=== PATIENT | female | born 1950 | race Hispanic/Latino ===

== ENCOUNTER 2024-04-11 12:13 | Inpatient (IN) | payer MEDICARE, OTHER ==
[~2024-04-11] VITALS: Ht 157.5 cm; Wt 62.6 kg
[2024-04-11 12:45] LABS: BASOPHILS # (AUTO) 0.03 K/uL (0.00-0.20); BASOPHILS % (AUTO) 0.4 % (0.0-5.0); EOSINOPHILS # (AUTO) 0.09 K/uL (0.00-0.70); EOSINOPHILS % (AUTO) 1.3 % (0.0-8.0); HEMATOCRIT 36.2 % (36-48); IMMATURE GRANULOCYTE ABSOLUTE 0.01 K/uL (0-1); LYMPHOCYTES # (AUTO) 1.5 K/uL (1.0-4.8); LYMPHOCYTES % (AUTO) 20.7 % (21.0-51.0); MEAN CORPUSCULAR HEMOGLOBIN 27.4 pg (27.0-33.0); MEAN CORPUSCULAR HGB CONC 33.1 g/dL (32.0-36.0); MEAN CORPUSCULAR VOLUME 82.6 fL (79-99); MONOCYTES # (AUTO) 0.5 K/uL (0.1-1.0); MONOCYTES % (AUTO) 6.5 % (3.0-13.0); PLATELET COUNT (AUTO) 283 K/uL (130-400); RED BLOOD CELL COUNT(AUTO) 4.38 MIL/uL (4.00-5.50); RED CELL DISTRIBUTION WIDTH 12.7 % (11.0-15.5); WHITE BLOOD COUNT (AUTO) 7.1 K/uL (4.8-10.8)
[2024-04-11 12:49] LABS: APPEARANCE,URINE CLEAR (CLEAR); BILIRUBIN,URINE NEGATIVE (NEGATIVE); COLOR,URINE COLORLESS (YELLOW); GLUCOSE, URINE (UA) NEGATIVE (NEGATIVE); KETONES,URINE NEGATIVE (NEGATIVE); LEUKOCYTE ESTERASE ,URINE 250 Leu/uL (NEGATIVE); NITRATE,URINE NEGATIVE (NEGATIVE); OCCULT BLOOD,URINE NEGATIVE (NEGATIVE); PH,URINE 7.5 (5.0-8.0); PROTEIN,URINE NEGATIVE (NEGATIVE); UROBILINOGEN,URINE 0.2 mg/dL (0.2-1.0)
[2024-04-11 13:01] LABS: ADD UA MICROSCOPIC YES
[2024-04-11 13:03] LABS: BACTERIA,URINE FEW /HPF (None Seen); RBC,URINE 0-1 /HPF (0-1); SQUAMOUS EPITHELIAL CELL,UR RARE /HPF (0-2); WBC,URINE 51-100 /HPF (0-1)
[2024-04-11 13:05] LABS: RAPID GROUP A STREP negative (NEGATIVE)
[2024-04-11 13:08] LABS: CREATININE 0.7 mg/dL (0.5-1.0); POTASSIUM 3.8 mmol/L (3.5-5.1)
[2024-04-11 13:13] LABS: INFLUENZA TYPE A Negative For Type A (NEGATIVE); INFLUENZA TYPE B Negative For Type B (NEGATIVE)
--- NOTE | 2024-04-11 13:16 | HMCIMG ---
CHEST 1VW HISTORY: Chest pain COMPARISON: None FINDINGS: A frontal projection of the chest was obtained. No acute pulmonary infiltrates is seen. The heart is borderline enlarged. Degenerative changes are seen. Prominent interstitial markings are seen. IMPRESSION: 1. No acute pulmonary infiltrate is seen.
[2024-04-11 13:29] LABS: SARS-CoV-2, RNA, NAAT NEGATIVE SARS CoV-2 (NEGATIVE)
[2024-04-11 13:34] LABS: B-TYPE NATRIURETIC PEPTIDE 21 pg/mL (0-100)
--- NOTE | 2024-04-11 13:49 | EKG ---
[facility] Test Date: 2024-04-11 Test Time: 12:06:33 Pat Name: NAHUN GAINES Department: EDH Room: ED Gender: F Clinical Cytogenetics Director: [id number] : 1950 Requested By: JOSE ARREDONDO Order Number: [id number] Reading MD: Héctor Anton Measurements Intervals [place] Rate: 82 P: 54 TN: 149 QRS: 25 QRSD: 98 T: 33 QT: 371 QTc: 434 Interpretive Statements Sinus rhythm No previous ECG available for comparison Electronically Signed On 04-11-2024 16:20:16 AGRICULTURAL SERVICE TECHNICIAN by Héctor Anton Please click the below link to view image of tracing.
--- NOTE | 2024-04-11 13:51 | ERN ---
General Chief Complaint: Chest Pain Stated Complaint: CP Time Seen by MD: 12:19 History of Present Illness Initial Comments 73-year-old female came in for chest pain going on since earlier today. Patient otherwise has no concerns. Allergies: Coded Allergies: No Known Drug Allergies (Unverified Allergy, Unknown, 04/11/24) Past Medical History Past Medical History: High Cholesterol, Hypertension, Other Medical History Other: MD Past Surgical History: Hysterectomy, Tonsillectomy, Cholecystectomy, ROS Dictation CONSTITUTIONAL: Negative except for HPI HEAD/FACE: Negative except for HPI EENT: Negative except for HPI RESPIRATORY: Negative except for HPI GASTROINTESTINAL/ABDOMINAL: Negative except for HPI GENITOURINARY: Negative except for HPI MUSCULOSKELETAL: Negative except for HPI INTEGUMENTARY: Negative except for HPI NEUROLOGICAL/PSYCH: Negative except for HPI HEMATOLOGIC/LYMPHATIC: Negative except for HPI All Systems Negative, Except as noted above. 13 point review of systems assessed and all negative except for above. Physical Exam Physical Exam Dictation Vital Signs reviewed General Appearance: Alert, oriented x 3, no acute distress, well developed, nourished. Head and Face: non-traumatic. Eyes: PERRL, pink conjunctivas, eyelid no trauma, anterior chamber with arcus senilis. Ears: Pinnas intact and no signs of trauma or erythema ear canals clear and no discharge TM no erythema Nose: No discharge, no bleeding. Oropharynx: Mouth normal, tongue pink, pharynx clear,no erythema, tonsils no exudates, no abscesses noted, mucous membrane moist Neck: Supple, non-tender, no thyromegaly, no masses, no JVD, no bruits Breast:Deferred Chest:No tenderness, no crepitus, no paradoxical movement, no retractions Lungs:Clear, well-ventilated, symmetric, no rales, no wheezing, no rhonchi, no stridor, good breath sounds bilaterally Heart: Regular rate, regular rhythm, no murmur, no gallops Vascular: no peripheral edema, Abdomen: Soft, positive bowel sounds, nondistended, no guarding, nontender, no rebound, no masses no hepatomegaly, no splenomegaly, no Villareal's sign, no hernias. Rectal: Deferred Genital: Deferred Neurological: Normal speech, motor function intact, sensory function intact Musculoskeletal: Neck nontender, full range of motion, back nontender, full range of motion, Extremities: nontender, full range of motion Skin: Color pink, dry, no turgor, no rash, no lacerations, no abrasions, no contusions. Lymphatic: Deferred Results Laboratory and Microbiology Lab and Micro Result Laboratory Tests Test 04/11/24 12:28 04/11/24 12:30 04/11/24 13:07 White Blood Count 7.1 K/uL (4.8-10.8) Red Blood Count 4.38 MIL/uL (4.00-5.50) Hemoglobin 12.0 g/dL (12.0-16.0) Hematocrit 36.2 % (36-48) Mean Corpuscular Volume 82.6 fL (79-99) Mean Corpuscular Hemoglobin 27.4 pg (27.0-33.0) Mean Corpuscular Hemoglobin Concent 33.1 g/dL (32.0-36.0) Red Cell Distribution Width 12.7 % (11.0-15.5) Platelet Count 283 K/uL (130-400) Mean Platelet Volume 9.2 fL (7.5-10.5) Immature Granulocyte % (Auto) 0.1 % (0-1) Neutrophils (%) (Auto) 71.0 % (40.0-77.0) Lymphocytes (%) (Auto) 20.7 % (21.0-51.0) L Monocytes (%) (Auto) 6.5 % (3.0-13.0) Eosinophils (%) (Auto) 1.3 % (0.0-8.0) Basophils (%) (Auto) 0.4 % (0.0-5.0) Neutrophils # (Auto) 5.0 K/uL (1.8-7.7) Lymphocytes # (Auto) 1.5 K/uL (1.0-4.8) Monocytes # (Auto) 0.5 K/uL (0.1-1.0) Eosinophils # (Auto) 0.09 K/uL (0.00-0.70) Basophils # (Auto) 0.03 K/uL (0.00-0.20) Absolute Immature Granulocyte (auto 0.01 K/uL (0-1) Nucleated Red Blood Cells 0.0 % (0.0-0.19) Sodium Level 139 mmol/L (136-145) Potassium Level 3.8 mmol/L (3.5-5.1) Chloride Level 102 mmol/L (101-111) Carbon Dioxide Level 28 mmol/L (21-32) Blood Urea Nitrogen 7 mg/dL (7-18) Creatinine 0.7 mg/dL (0.5-1.0) Glomerular Filtration Rate Calc 92 mL/min (>90) Random Glucose 200 mg/dL (70-105) H Total Calcium 9.7 mg/dL (8.5-10.1) Total Creatine Kinase 88 U/L (21-232) B-Type Natriuretic Peptide 21 pg/mL (0-100) Influenza Type A Antigen Negative For Type A Influenza Type B Antigen Negative For Type B SARS-CoV-2, RNA, NAAT NEGATIVE SARS CoV-2 Group A Streptococcus Rapid negative (NEGATIVE) Urine Color COLORLESS (YELLOW) Urine Appearance CLEAR (CLEAR) Urine pH 7.5 (5.0-8.0) Urine Specific [place] 1.005 (1.001-1.031) Urine Protein NEGATIVE mg/dL (NEGATIVE) Urine Glucose (UA) NEGATIVE mg/dL (NEGATIVE) Urine Ketones NEGATIVE mg/dL (NEGATIVE) Urine Occult Blood NEGATIVE (NEGATIVE) Urine Nitrate NEGATIVE (NEGATIVE) Urine Bilirubin NEGATIVE mg/dL (NEGATIVE) Urine Urobilinogen 0.2 mg/dL (0.2-1.0) Urine Leukocyte Esterase 250 Alla/uL (NEGATIVE) H Urine RBC 0-1 /HPF (0-1) Urine WBC 51-100 /HPF (0-1) H Urine Squamous Epithelial Cells RARE /HPF (0-2) Urine Bacteria FEW /HPF (None Seen) Troponin I < 0.05 ng/mL (0.00-0.05) MDM MDM: Differential diagnosis: Rationale: Tests considered and ordered secondary to shared decision making include: Previous outside records reviewed: Old ER visits. Risk of complication and/or morbidity or mortality of patient management: None Medications-Per medication reconciliation Need for hospitalization: Patient does meet criteria for hospitalization. Need for emergency major/minor surgery: No There are no social concerns with this patient. Prescription drug management Prescriptions will include symptomatic care Patient's prior external medical records from other ER visits were reviewed by me as indicated. Prior testing and results from previous visits were reviewed. Prior tests were taken into account with medical decision making and resource utilization, independent historian/historians were used to obtain complete medical history. I independently interpreted the test that were performed, results were reviewed by me and considered findings on radiology if ordered. Medical management and examination interpretation discussions were had by me with other qualified healthcare professionals as indicated for the patient's care. ED Course Orders Procedure Category Date Status Time Vital Signs Per CPOE 04/11/24 Transmitted Routine 12:15 B-Type Natriuretic LAB 04/11/24 Complete Peptide 12:15 Chest 1vw RAD 04/11/24 Resulted 12:15 12 Lead Ekg Tracing- EKG 04/11/24 Complete Technical 12:15 Oxygen By Nc/Pulse Ox CPOE 04/11/24 Transmitted 12:15 Maintain Iv CPOE 04/11/24 Transmitted 12:15 Iv Insertion CPOE 04/11/24 Transmitted 12:15 Cardiac Monitoring CPOE 04/11/24 Transmitted 12:15 Pulse Oximetry With CPOE 04/11/24 Transmitted Vs And Prn 12:15 Cbc With Differential LAB 04/11/24 Complete 12:15 Activity: Br W/Brp CPOE 04/11/24 Transmitted With Assist 12:15 Creatine Kinase, Total LAB 04/11/24 Complete 12:15 Troponin Poc Order LAB 04/11/24 Complete Only 12:15 Bedside Troponin-I LAB.ER 04/11/24 In Process (Poc) 12:15 Basic Metabolic Panel LAB 04/11/24 Complete 12:15 Covid Rna Naat LAB 04/11/24 Complete 12:15 Influenza Type A & B, LAB 04/11/24 Complete Rapid 12:15 Rapid (Group A Strep) LAB 04/11/24 Complete 12:15 Urinalysis Profile LAB 04/11/24 Complete 12:32 Culture Urine BRYANT 04/11/24 In Process 13:01 Vital Signs Date Time Temp Pulse Resp B/P (MAP) Pulse Ox O2 Delivery O2 Flow Rate FiO2 04/11/24 12:57 81 16 157/79 98 Room Air* 0 21 04/11/24 12:17 98.1 88 20 151/87 98 Room Air 0 DX & DISP Disposition: Inpatient Departure Impression: Primary Impression: Chest pain Condition: Stable Referrals: TUCKER WILLIAMSON (PCP) JOSE ARREDONDO MD Apr 11, 2024 13:51
--- NOTE | 2024-04-11 14:10 | NUR ---
CARDIOLOGY CONSULT DONE, DR. FRANKS SPOKE DIRECTLY TO PRINCIPAL RESEARCH ECONOMIST
[2024-04-11] MEDS: cefTRIAXone 1G VIAL IVPB SCH (14:27)
[2024-04-11] MEDS ORDERED: BUDESONIDE 0.5 MG/2 ML INH IH SCH (14:30)
[2024-04-11] MEDS ORDERED: NITROGLYCERIN 0.4 MG SL TAB SL PRN ×2 (14:30)
[2024-04-11] MEDS ORDERED: acetaMINOPHEN 500 MG TABLET PO PRN (14:30)
--- NOTE | 2024-04-11 14:40 | HP ---
[facility] HISTORY AND PHYSICAL Date of Service: Apr 11, 2024 Time of Service: 14:34 HISTORY OF PRESENT ILLNESS: Date of service: 04/11/2024, patient was seen in ER hallway Neva, 73-year-old female with underlying history of hypertension, hyperlipidemia, type 2 diabetes mellitus, previous history of IA x3 with last IA being in 2004, prior history of PCI with stenting, cardiac murmur, who presented to the ER for further evaluation of chest pain. Patient states that she has been having cough for about a week and she was following up with her primary care physician today. While waiting in the lobby, she developed left-sided chest pain which she describes as stabbing in quality. Pain lasted for about 10-15 minutes and was relieved after receiving aspirin and nitroglycerin. Patient states that she became anxious due to prior history of multiple MIs. She is followed by Dr. Sheffield with Cardiology in [place]. Patient states that she currently is not having active chest pain. Denies any significant chest trauma or pleurisy. Cough has been productive with greenish colored sputum. She has been also having dysuria as well. Denies any significant fevers, chills or shortness of breath. On presentation to the hospital, patient was noted to be afebrile with T-max of 98.1 F, heart rate of 88, blood pressure of 151/87. Labs on presentation showed WBC count of 7100, hemoglobin 12.0, platelet count of [id number]. BMP remarkable for sodium 139, potassium 3.8, chloride of 102, creatinine of 0.7, blood glucose of 200, and bedside troponin was noted to be negative. Chest x-ray showed no acute infiltrate. Patient will be admitted for further management of UTI, bronchitis, and will also undergo further workup to rule out active ACS. Consultation with Cardiology will be requested, and 2D echocardiogram will be obtained. REVIEW OF SYSTEMS CONSTITUTIONAL: [place] NEUROLOGICAL: Denies headache, amaurosis fugax, motor weakness, sensory deficit, vertigo/spinning sensation, gait abnormalities, or tremors. ENT: No hearing loss, otalgia, otorrhea, rhinitis, rhinorrhea, hoarseness, or sore throat. CARDIOVASCULAR: Patient reports having chest pain today PULMONARY: Cough and congestion SLEEP: Denies morning headaches, daytime somnolence or napping. Denies difficulty falling asleep, staying asleep, waking from sleep. Denies knowledge of snoring. GASTROINTESTINAL: Denies any type of dysphagia to either liquids or solids. Denies nausea, vomiting, pyrosis, early satiety, abdominal pain, diarrhea, constipation, or changes in stool consistency or caliber. Denies coffee-ground emesis, hematemesis, hematochezia, or melanotic stools. GENITOURINARY: Denies frequency, urgency, nocturia, hematuria or incontinence (Storage/Irritative symptoms.) Low urinary stream, straining to void, urinary intermittency or hesitancy, splitting of the voiding stream, terminal dribbling. ENDOCRINOLOGIC: Denies polyuria, polydipsia, polyphagia or heat/cold intolerances. HEMATOLOGIC: Denies thrombophilia/previous clots, or coagulopathy/bleeding disorders. ONCOLOGIC: Denies personal history of malignancy. DERMATOLOGIC: Denies rashes or pruritus. PSYCHIATRIC: Denies any suicidal or homicidal ideation. Denies hallucinations. PAST MEDICAL HISTORY: Hypertension, hyperlipidemia, prior history of IA x3, gastritis, type 2 diabetes mellitus, history of cardiac murmur PAST SURGICAL HISTORY: Hysterectomy, cholecystectomy, prior history of PCI in 2004, tonsillectomy PAST SOCIAL HISTORY: Currently denies active smoking or alcohol consumption FAMILY HISTORY: Denies pertinent family history Allergies: Denies known drug allergies Medications: Patient will be bringing home medication list to be reconciled and updated, reports being on losartan, metoprolol XL, metformin, Lipitor Coded Allergies: No Known Drug Allergies (Unverified Allergy, Unknown, 04/11/24) PHYSICAL EXAM GENERAL APPEARANCE: The patient is awake, alert, and oriented, in no acute cardiopulmonary distress. NEUROLOGICAL: Cranial nerves II-XII grossly intact. Motor is 5/5 in bilateral upper and lower extremities proximal to distal. No sensory deficits. HEENT: Face is symmetric. Pupils are equal and reactive. Extraocular movements are intact. NECK: Supple. No JVD. No thyromegaly. No submental, submandibular, pre-/postauricular, occipital or supraclavicular lymphadenopathy. CHEST: Normal chest expansion. No Telemetry. LUNGS: Absence of any rales, rhonchi or any wheezing. CARDIOVASCULAR: Regular. S1 and S2 normal. 3/6 murmur noted of the precordium ABDOMEN: Soft, nontender, and nondistended. There is no rebound, voluntary guarding, or rigidity. : Deferred. No [place]. EXTREMITIES: Non-edematous and not cyanotic. No clubbing. Good capillary refill. SKIN: No skin breakdown. Vital Sign (Last 24 Hours) 04/11/24 04/11/24 12:17 14:07 Temp 98.1 Pulse 76 Resp 16 B/P (MAP) 149/77 Pulse Ox 98 O2 Delivery Room Air* O2 Flow Rate 0 FiO2 21 LABS: Laboratory: Test 04/11/24 13:07 04/11/24 12:30 04/11/24 12:28 Range/Units Troponin I < 0.05 0.00-0.05 ng/mL Urine Color COLORLESS YELLOW Urine Appearance CLEAR CLEAR Urine pH 7.5 5.0-8.0 Urine Specific [place] 1.005 1.001-1.031 Urine Protein NEGATIVE NEGATIVE mg/dL Urine Glucose (UA) NEGATIVE NEGATIVE mg/dL Urine Ketones NEGATIVE NEGATIVE mg/dL Urine Occult Blood NEGATIVE NEGATIVE Urine Nitrate NEGATIVE NEGATIVE Urine Bilirubin NEGATIVE NEGATIVE mg/dL Urine Urobilinogen 0.2 0.2-1.0 mg/dL Urine Leukocyte Esterase 250 H NEGATIVE Alla/uL Urine RBC 0-1 0-1 /HPF Urine WBC 51-100 H 0-1 /HPF Urine Squamous Epithelial Cells RARE 0-2 /HPF Urine Bacteria FEW None Seen /HPF White Blood Count 7.1 4.8-10.8 K/uL Red Blood Count 4.38 4.00-5.50 MIL/uL Hemoglobin 12.0 12.0-16.0 g/dL Hematocrit 36.2 36-48 % Mean Corpuscular Volume 82.6 79-99 fL Mean Corpuscular Hemoglobin 27.4 27.0-33.0 pg Mean Corpuscular Hemoglobin Concent 33.1 32.0-36.0 g/dL Red Cell Distribution Width 12.7 11.0-15.5 % Platelet Count 283 130-400 K/uL Mean Platelet Volume 9.2 7.5-10.5 fL Immature Granulocyte % (Auto) 0.1 0-1 % Neutrophils (%) (Auto) 71.0 40.0-77.0 % Lymphocytes (%) (Auto) 20.7 L 21.0-51.0 % Monocytes (%) (Auto) 6.5 3.0-13.0 % Eosinophils (%) (Auto) 1.3 0.0-8.0 % Basophils (%) (Auto) 0.4 0.0-5.0 % Neutrophils # (Auto) 5.0 1.8-7.7 K/uL Lymphocytes # (Auto) 1.5 1.0-4.8 K/uL Monocytes # (Auto) 0.5 0.1-1.0 K/uL Eosinophils # (Auto) 0.09 0.00-0.70 K/uL Basophils # (Auto) 0.03 0.00-0.20 K/uL Absolute Immature Granulocyte (auto 0.01 0-1 K/uL Nucleated Red Blood Cells 0.0 0.0-0.19 % Sodium Level 139 136-145 mmol/L Potassium Level 3.8 3.5-5.1 mmol/L Chloride Level 102 101-111 mmol/L Carbon Dioxide Level 28 21-32 mmol/L Blood Urea Nitrogen 7 7-18 mg/dL Creatinine 0.7 0.5-1.0 mg/dL Glomerular Filtration Rate Calc 92 >90 mL/min Random Glucose 200 H 70-105 mg/dL Total Calcium 9.7 8.5-10.1 mg/dL Total Creatine Kinase 88 21-232 U/L B-Type Natriuretic Peptide 21 0-100 pg/mL Influenza Type A Antigen Negative For Type A NEGATIVE Influenza Type B Antigen Negative For Type B NEGATIVE SARS-CoV-2, RNA, NAAT NEGATIVE SARS CoV-2 NEGATIVE Group A Streptococcus Rapid negative NEGATIVE Current Medications Medications (Trade) Dose Ordered Sig/John Route PRN Reason Start Time Stop Time Status Last Admin Dose Admin Acetaminophen (TYLenol 500MG TAB) 500 mg Q6H PRN PO MILD PAIN (1-3) 04/11/24 14:30 05/11/24 14:29 Budesonide (Pulmicort 0.5 Mg/2ml) 0.5 mg BIDRESP IH 04/11/24 14:30 05/11/24 14:29 Ceftriaxone Sodium (ROCEphine 1G INJ) 1 gm Q12H IVPB 04/11/24 14:30 04/21/24 14:29 04/11/24 14:27 1 GM Clopidogrel Bisulfate (plaVIX 75MG) 75 mg DAILY PO 04/12/24 09:00 05/12/24 08:59 Enoxaparin Sodium (Lovenox) 40 mg DAILY SQ 04/12/24 09:00 05/12/24 08:59 Famotidine (Pepcid 20mg Vial) 20 mg DAILY IV 04/12/24 09:00 04/11/24 14:21 DC Fluticasone Propionate (FLOnase 50 mcg/ spray 16g bottle) 1 SPRAY PER NARE BID EN 04/11/24 21:00 05/11/24 20:59 Insulin Human Regular (humuLIN R 100 UNIT/ML 3ML) INSULIN SLIDING SCAL... ACHS SQ 04/11/24 16:30 05/11/24 16:29 Ipratropium [place] (AtrovENT UD) 0.5 mg Q6H PRN IH SHORTNESS OF BREATH 04/11/24 14:30 05/11/24 14:29 Losartan Potassium (CozAAR 100MG TAB) 100 mg DAILY PO 04/12/24 09:00 05/12/24 08:59 Metoprolol Succinate (TopROL XL) 50 mg DAILY PO 04/12/24 09:00 05/12/24 08:59 Nitroglycerin (Nitrostat) 0.4 mg AD PRN SL CHEST PAIN 04/11/24 14:30 04/11/24 14:13 DC Nitroglycerin (Nitrostat) 0.4 mg AD PRN SL CHEST PAIN 04/11/24 14:30 05/11/24 14:29 Pantoprazole Sodium (PROTonix 40MG TAB) 40 mg DAILY PO 04/12/24 09:00 05/12/24 08:59 DIAGNOSTICS / RADIOLOGY: IMAGING REPORT Signed PATIENT: NAHUN GAINES MR#: [id number] : 1950 SEX: F AGE: 73 LOCATION: [facility] ORDER STATUS: [facility] REPORT#: [id number] SERVICE [id number] REASON: CHEST PAIN ORDERING PHYSICIAN: JOSE ARREDONDO MD PROCEDURE: CXR1VW - CHEST 1VW CHEST 1VW HISTORY: Chest pain COMPARISON: None FINDINGS: A frontal projection of the chest was obtained. No acute pulmonary infiltrates is seen. The heart is borderline enlarged. Degenerative changes are seen. Prominent interstitial markings are seen. IMPRESSION: 1. No acute pulmonary infiltrate is seen. DICTATED BY: ARUN KHAN MD DATE: 04/11/241312 ELECTRONICALLY SIGNED BY: ARUN KHAN MD DATE: 04/11/241315 ASSESSMENT: Atypical chest pain, rule out unstable angina/ACS, POA Acute bronchitis, POA Urinary tract infection, POA History of prior IA x3 with prior history of PCI maintained on chronic antiplatelet therapy with Plavix, POA Cardiac murmur, POA History of type 2 diabetes mellitus, POA Hypertension, POA Hyperlipidemia, POA PLAN: Patient will be admitted to medical-surgical floor under telemetry monitoring We will trend troponin to rule out active ACS We will start patient on IV Rocephin for management of UTI, obtain respiratory cultures, follow up flu and COVID testing We will request consultation with Cardiology, 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 [place] Continue with home dose of losartan 100 mg daily, metoprolol succinate 50 mg daily Continue with home dose of Plavix We will obtain 2D echocardiogram to assess LVF, and further evaluate cardiac murmur which patient states has been there chronically Maintain K greater than four and magnesium greater than two All labs will be repeated in the morning Date of service: 04/11/2024 Plan of care was discussed with patient at bedside, Yazan White MD Advanced Care Planning: Which of the following were discussed: Hospice care: Yes __ No _X_ Therapeutic options: Yes _X_ No __ Advance directives: Yes _X_ No __ Other discussions: Discussed with who?: Patient Voluntary nature of this service was explained to the patient? Yes _x_ No __ Amount of time spent: 20 minutes YAZAN WHITE MD Apr 11, 2024 14:40
[2024-04-11 14:42] LABS: ALBUMIN 3.2 g/dL (3.5-5.0); BILIRUBIN,DIRECT 0.1 mg/dL (0.0-0.3); BILIRUBIN,TOTAL 0.4 mg/dL (0.2-1.0); MAGNESIUM 1.3 mg/dL (1.80-2.40); TOTAL PROTEIN, SERUM 7.8 g/dL (6.0-8.3)
[2024-04-11 14:47] LABS: HEMOGLOBIN A1C 6.7 % (4.0-6.0)
[2024-04-11 14:51] LABS: THYROID STIMULATING HORMONE 1.79 uIU/mL (0.36-3.74)
[2024-04-11] MEDS: MAGNESIUM 2GM PREMIX 50ML 50 ML IV SCH (14:55)
[2024-04-11] MEDS ORDERED: PoTASSium chloRIDE 20MEQ/100ML 100 ML IV PRN (15:00)
[2024-04-11] MEDS ORDERED: PoTASSium chl 10% ELIXIR 20MEQ 20 MEQ/15 ML UDCUP PO PRN (15:00)
[2024-04-11 15:55] VITALS: PULSE 73; RESP 18
[2024-04-11] MEDS ORDERED: LOSA100T59 PO ×2 (15:56→20:09)
[2024-04-11] MEDS ORDERED: METO-391 PO ×2 (15:56→20:09)
[2024-04-11] MEDS ORDERED: PANT40TA54 PO ×2 (15:56→20:09)
[2024-04-11] MEDS ORDERED: ATOR20TA65 PO ×2 (15:56→20:09)
[2024-04-11] MEDS ORDERED: CLOP75TA32 PO ×2 (15:56→20:09)
[2024-04-11] MEDS ORDERED: METF-444 PO ×2 (15:56→20:09)
[2024-04-11] MEDS: IpraTROPium 0.5 MG/2.5 ML INH IH PRN (16:25)
[2024-04-11] MEDS: SODIUM CHLORIDE 3% FOR INHALATION 4 ML/AMP VIAL.NEB IH ONE (16:25)
[2024-04-11] MEDS: INSULIN humuLIN R 100 UNIT/ML 3ML SQ SCH (16:30)
[2024-04-11 19:42] VITALS: PULSE 85; RESP 18; O2SAT 100
[2024-04-11] MEDS: BUDESONIDE 0.5 MG/2 ML INH IH SCH (19:42)
[2024-04-11] MEDS ORDERED: ACET-2123 PO (20:09)
[2024-04-11] MEDS: fluTICasone proPIONate 50MCG/SPRAY 16 GM BOTTLE EN SCH (21:05)
[2024-04-11] MEDS: atorVAStatin 20 MG TABLET PO SCH (21:05)
[2024-04-11 22:20] VITALS: BP 166/88; PULSE 88; RESP 20; O2SAT 98
[2024-04-11] MEDS: PoTASSium chloRIDE 20MEQ ER 20 MEQ ERTAB PO PRN (22:23)
--- NOTE | 2024-04-11 23:28 | CONS ---
CONSULT NOTE: CARDIOLOGY Reason for consult: Chest pain HPI/story at presentation: This is a pleasant 71-year-old female with past medical history as per present with complaints of atypical chest discomfort in the setting of a cough and chest pain subsequently. Has a history of significant coronary disease with [place] multiple times in the past, most recent stenting per patient by 2004. Also, reported, had a cardiac catheterization that lasted, unable to find report. Cardiology was consulted for further evaluation management Subjective: 04/11/2024, no active cardiac complaint Past medical history: See below Allergies, Meds See chart Review of systems Review of Systems Constitutional: Negative for chills and fever. HENT: Negative for ear discharge and ear pain. Eyes: Negative for photophobia and discharge. Respiratory: Negative for cough, sputum production and stridor. Cardiovascular: Negative for chest pain and palpitations. Gastrointestinal: Negative for diarrhea and vomiting. Genitourinary: Negative for frequency. Musculoskeletal: Negative for myalgias. Skin: Negative for rash. Neurological: Negative for focal weakness and seizures. Endo/Heme/Allergies: Negative for polydipsia. Psychiatric/Behavioral: Negative for hallucinations. Vitals see chart PHYSICAL EXAMINATION GENERAL: The patient is alert and oriented*3 HEENT: Nonicteric sclerae, non traumatic HEART:MURMUR 04/11/2024 LUNGS: Clear to auscultation bilaterally ABDOMEN: No acute issues, non tender GENITAL, RECTAL: deferred SKIN: No rash NEUROLOGIC: NFND EXTREMITIES: No edema ASSESSMENT CHEST PAIN, CORONARY ARTERY DISEASE Atypical in the setting of cough and bronchitis Negative cardiac catheterization, 03/2023, this is reported, unable to find cardiac catheterization both [facility] records Reported history of myocardial infarction almost 15 years ago Atypical symptoms, no ischemic changes on EKG Negative troponins MURMUR Echo ordered, 04/11/2021 HYPERLIPIDEMIA DIABETES HYPERTENSION CORE MEASURES Pending OTHER MEDICAL PROBLEMS Reviewed PLAN unable to find previous records and both hospital systems. Given a typical symptoms, will proceed echocardiogram tomorrow prior to considering stress testing. If echo is abnormal with significant valvular issues, would likely benefit from cardiac catheterization over stress testing and therefore, we will proceed with echo first. Tentatively, however, keep n.p.o. after midnight. ATTESTATION I was involved substantially in the care of this patient Number and complexity of problems addressed: 1 acute illness with systemic features Amount and or complexity of data Review of prior external note(s) from each unique source: 2+ Ordering of each unique test : 0 Review of the result(s) of each unique test: 2+ Assessment requiring an independent historian(s): No Independent interpretation of test performed by another MD/QHCP/appropriate source (not separately reported) : No Discussion of management or test interpretation with external MD/QHCP/appropriate source (not separately reported) : No Risk status (cardiac, billing related): Moderate JUSTO FARIAS MD Apr 11, 2024 23:28
[2024-04-12] VITALS (11 sets, daily range): BP systolic 104–162; BP diastolic 60–80; PULSE 78–89; RESP 16–20; TEMP 98.1–98.8; O2SAT 97–99
[2024-04-12 05:00] LABS: BASOPHILS # (AUTO) 0.04 K/uL (0.00-0.20); BASOPHILS % (AUTO) 0.5 % (0.0-5.0); EOSINOPHILS # (AUTO) 0.15 K/uL (0.00-0.70); HEMATOCRIT 36.4 % (36-48); IMMATURE GRANULOCYTE ABSOLUTE 0.02 K/uL (0-1); LYMPHOCYTES # (AUTO) 2.2 K/uL (1.0-4.8); MEAN CORPUSCULAR HEMOGLOBIN 27.5 pg (27.0-33.0); MEAN CORPUSCULAR HGB CONC 32.7 g/dL (32.0-36.0); MEAN CORPUSCULAR VOLUME 84.1 fL (79-99); MONOCYTES # (AUTO) 0.6 K/uL (0.1-1.0); MONOCYTES % (AUTO) 8.3 % (3.0-13.0); NEUTROPHILS # (AUTO) 4.7 K/uL (1.8-7.7); NEUTROPHILS % (AUTO) 60.9 % (40.0-77.0); PLATELET COUNT (AUTO) 295 K/uL (130-400); RED BLOOD CELL COUNT(AUTO) 4.33 MIL/uL (4.00-5.50); RED CELL DISTRIBUTION WIDTH 12.8 % (11.0-15.5); WHITE BLOOD COUNT (AUTO) 7.7 K/uL (4.8-10.8)
[2024-04-12 05:16] LABS: ALBUMIN 3.2 g/dL (3.5-5.0); BILIRUBIN,TOTAL 0.3 mg/dL (0.2-1.0); CREATININE 0.7 mg/dL (0.5-1.0); MAGNESIUM 2.4 mg/dL (1.80-2.40); POTASSIUM 4.3 mmol/L (3.5-5.1); TOTAL PROTEIN, SERUM 7.9 g/dL (6.0-8.3)
[2024-04-12] MEDS ORDERED: FAMOTIDINE 20MG VIAL IV SCH (09:00)
--- NOTE | 2024-04-12 09:41 | HMCSR ---
APPROVED REPORT EXAM: Two-dimensional and M-mode echocardiogram with Doppler and color Doppler. INDICATION ICD: Chest Pain 2D Dimensions RVDd3.3 cmLVEF(%)68.1 (>50%)LVED Vol(simp.)77.3 mL IVSd0.8 (0.7-1.1cm)FS(%)38 %LVES Vol(simp.)32.3 mL LVDd4.0 (3.8-5.6cm)LA (2D)3.6 (1.6-4.0cm)LVEF(%, simp.)58 % PWd1.2 (0.7-1.1cm)Ao Root(2D)3.0 (2.0-3.7cm)LA ESV INDEX (4CH)27.40 mL/m2 IVSs1.3 cmLVOT diam2.2 (1.8-2.4cm)LA ESV INDEX (2CH)26.80 mL/m2 LVDs2.5 (2.5-4.0cm)LA ESV INDEX (BP)25.90 mL/m2 PWs1.5 cm M-Mode Dimensions EPSS1.0 cm LA (MM)4.1 (1.6-4.0cm) Ao Root(MM)3.3 (2.0-3.7cm) Aortic Valve AoV VTI0.8 mAo Mean GR29.0 mmHgLVOT VTI0.21 m JANENE (VMAX)1.0 cm2Al P1/2T347 msAVA (VTI) 1.0 cm2 Mitral Valve MV E Vmax62.6 cm/sDECEL Rwfv167 ms MV A Vmax79.1 cm/sP 1/2 T97 ms E/A ratio0.8MVA (PHT)2.3 cm2 TDI E/E' Uamvei78.3E/E' Lateral7.4 Medial E' Peak V4.10 cm/sLateral E' Peak V8.50 cm/s Tricuspid Valve RAP (EST) 8 mmHgRVSP8.0 mmHg Left Ventricle Left ventricular cavity size is normal. Normal wall motion There is normal left ventricular wall thic kness. LVEF is 60-65%. Indeterminate diastolic dysfunction. Right Ventricle The right ventricle is normal size. The right ventricular systolic function is normal. Atria The left atrium size is normal. The right atrium size is normal. Aortic Valve Aortic valve is trileaflet, thickened with restricted opening. Trace of aortic regurgitation is prese nt. There is Moderate aortic valvular stenosis. Mitral Valve Mitral valve leaflets appear normal. There is no mitral valve regurgitation noted. There is no mitral valve stenosis. Tricuspid Valve The tricuspid valve leaflets appear normal. There is trivial tricuspid valve regurgitation noted. Pulmonic Valve The pulmonary valve is normal in structure and function. There is no pulmonic valvular regurgitation. Great Vessels The aortic root is normal in size. The IVC is normal in size and collapses <50% with inspiration. Pericardium No pericardial effusion. Conclusion LVEF is 60-65%. Indeterminate diastolic dysfunction. There is normal left ventricular wall thickness. Left ventricular cavity size is normal. Normal wall motion Aortic valve is trileaflet, thickened with restricted opening. There is Moderate aortic valvular stenosis.Vmax 3.5 m/s No pericardial effusion. Normal pulmonary pressures study quality was adequate
[2024-04-12] MEDS ORDERED: REGADENOSON 0.4 MG/5 ML PF SYG IVP SCH (14:00)
[2024-04-12] MEDS ORDERED: REGADENOSON 0.4 MG/5 ML PF SYG IVP ONE (14:12)
--- NOTE | 2024-04-12 15:28 | PN ---
[facility] PROGRESS NOTE Date of Service: Apr 12, 2024 Time of Service: 15:23 SUBJECTIVE: 04/12 patient seen at bedside, no acute events overnight. Cardiology recommending stress test, we will follow up with the results. She does have pain on palpation of the chest which may suggest some muscular soreness from coughing for the last four days. She has been started on p.r.n. medications for cough with some improvement. Urine growing bacteria, we will continue with empiric antibiotics. Vitals and labs are relatively unremarkable. REVIEW OF SYSTEMS 12 point review of systems negative unless noted in HPI PHYSICAL EXAM GENERAL APPEARANCE: The patient is awake, alert, and oriented, in no acute cardiopulmonary distress. NEUROLOGICAL: Cranial nerves II-XII grossly intact. Motor is 5/5 in bilateral upper and lower extremities proximal to distal. No sensory deficits. HEENT: Face is symmetric. Pupils are equal and reactive. Extraocular movements are intact. NECK: Supple. No JVD. No thyromegaly. No submental, submandibular, pre- /postauricular, occipital or supraclavicular lymphadenopathy. CHEST: Normal chest expansion. No Telemetry. LUNGS: Absence of any rales, rhonchi or any wheezing. CARDIOVASCULAR: Regular. S1 and S2 normal. 3/6 murmur noted of the precordium ABDOMEN: Soft, nontender, and nondistended. There is no rebound, voluntary guarding, or rigidity. : Deferred. No [place]. EXTREMITIES: Non-edematous and not cyanotic. No clubbing. Good capillary refill. SKIN: No skin breakdown. Vital Signs (last 8hr) Date Time Temp Pulse Resp B/P (MAP) Pulse Ox O2 Delivery O2 Flow Rate FiO2 04/12/24 11:00 98.1 78 20 139/76 98 Room Air 04/12/24 09:31 97 Room Air* 0 21 LABS: Laboratory: Test 04/12/24 10:50 04/12/24 04:23 04/11/24 15:13 04/11/24 13:07 Range/Units Whole Blood Glucose 129 H 70-110 MG/DL Bedside Glucose Comment Notified Nurse White Blood Count 7.7 4.8-10.8 K/uL Red Blood Count 4.33 4.00-5.50 MIL/uL Hemoglobin 11.9 L 12.0-16.0 g/dL Hematocrit 36.4 36-48 % Mean Corpuscular Volume 84.1 79-99 fL Mean Corpuscular Hemoglobin 27.5 27.0-33.0 pg Mean Corpuscular Hemoglobin Concent 32.7 32.0-36.0 g/dL Red Cell Distribution Width 12.8 11.0-15.5 % Platelet Count 295 130-400 K/uL Mean Platelet Volume 9.2 7.5-10.5 fL Immature Granulocyte % (Auto) 0.3 0-1 % Neutrophils (%) (Auto) 60.9 40.0-77.0 % Lymphocytes (%) (Auto) 28.0 21.0-51.0 % Monocytes (%) (Auto) 8.3 3.0-13.0 % Eosinophils (%) (Auto) 2.0 0.0-8.0 % Basophils (%) (Auto) 0.5 0.0-5.0 % Neutrophils # (Auto) 4.7 1.8-7.7 K/uL Lymphocytes # (Auto) 2.2 1.0-4.8 K/uL Monocytes # (Auto) 0.6 0.1-1.0 K/uL Eosinophils # (Auto) 0.15 0.00-0.70 K/uL Basophils # (Auto) 0.04 0.00-0.20 K/uL Absolute Immature Granulocyte (auto 0.02 0-1 K/uL Nucleated Red Blood Cells 0.0 0.0-0.19 % Sodium Level 135 L 136-145 mmol/L Potassium Level 4.3 3.5-5.1 mmol/L Chloride Level 100 L 101-111 mmol/L Carbon Dioxide Level 29 21-32 mmol/L Blood Urea Nitrogen 6 L 7-18 mg/dL Creatinine 0.7 0.5-1.0 mg/dL Glomerular Filtration Rate Calc 92 >90 mL/min Random Glucose 123 H 70-105 mg/dL Total Calcium 9.5 8.5-10.1 mg/dL Magnesium Level 2.40 1.80-2.40 mg/dL Total Bilirubin 0.3 # 0.2-1.0 mg/dL Aspartate Amino Transf (AST/SGOT) 19 10-37 U/L Alanine Aminotransferase (ALT/SGPT) 28 12-78 U/L Alkaline Phosphatase 134 50-136 U/L Total Creatine Kinase 85 21-232 U/L Troponin I High Sensitivity 7.0 4-50 ng/L Total Protein 7.9 6.0-8.3 g/dL Albumin 3.2 L 3.5-5.0 g/dL Erythrocyte Sedimentation Rate 58 H 0-30 MM/HR Troponin I < 0.05 0.00-0.05 ng/mL Test 04/11/24 12:30 04/11/24 12:28 Range/Units Urine Color COLORLESS YELLOW Urine Appearance CLEAR CLEAR Urine pH 7.5 5.0-8.0 Urine Specific [place] 1.005 1.001-1.031 Urine Protein NEGATIVE NEGATIVE mg/dL Urine Glucose (UA) NEGATIVE NEGATIVE mg/dL Urine Ketones NEGATIVE NEGATIVE mg/dL Urine Occult Blood NEGATIVE NEGATIVE Urine Nitrate NEGATIVE NEGATIVE Urine Bilirubin NEGATIVE NEGATIVE mg/dL Urine Urobilinogen 0.2 0.2-1.0 mg/dL Urine Leukocyte Esterase 250 H NEGATIVE Alla/uL Urine RBC 0-1 0-1 /HPF Urine WBC 51-100 H 0-1 /HPF Urine Squamous Epithelial Cells RARE 0-2 /HPF Urine Bacteria FEW None Seen /HPF Hemoglobin A1c 6.7 H 4.0-6.0 % Estimated Average Glucose (eAG) 146 H 70-126 mg/dL Direct Bilirubin 0.1 0.0-0.3 mg/dL C-Reactive Protein, Quantitative 7.40 H 0.5-3.0 mg/L B-Type Natriuretic Peptide 21 0-100 pg/mL Procalcitonin < 0.05 L 0.05-0.5 ng/mL Thyroid Stimulating Hormone (TSH) 1.79 0.36-3.74 uIU/mL Influenza Type A Antigen Negative For Type A NEGATIVE Influenza Type B Antigen Negative For Type B NEGATIVE SARS-CoV-2, RNA, NAAT NEGATIVE SARS CoV-2 NEGATIVE Group A Streptococcus Rapid negative NEGATIVE Current Medications Medications (Trade) Dose Ordered Sig/John Route PRN Reason Start Time Stop Time Status Last Admin Dose Admin Acetaminophen (TYLenol 500MG TAB) 500 mg Q6H PRN PO MILD PAIN (1-3) 04/11/24 14:30 05/11/24 14:29 Atorvastatin Calcium (LIPItor 20MG) 20 mg HS PO 04/11/24 21:00 05/11/24 20:59 04/11/24 21:05 20 MG Benzonatate (Tessalon 100mg Caps) 100 mg Q8H PRN PO cough 04/12/24 11:00 05/12/24 10:59 Budesonide (Pulmicort 0.5 Mg/2ml) 0.5 mg BIDRESP IH 04/11/24 14:30 04/11/24 16:30 DC Budesonide (Pulmicort 0.5 Mg/2ml) 0.5 mg BIDRESP IH 04/11/24 18:00 05/11/24 17:59 04/12/24 06:33 0.5 MG Ceftriaxone Sodium (ROCEphine 1G INJ) 1 gm Q12H IVPB 04/11/24 14:30 04/21/24 14:29 04/12/24 01:32 1 GM Clopidogrel Bisulfate (plaVIX 75MG) 75 mg DAILY PO 04/12/24 09:00 05/12/24 08:59 Enoxaparin Sodium (Lovenox) 40 mg DAILY SQ 04/12/24 09:00 05/12/24 08:59 Famotidine (Pepcid 20mg Vial) 20 mg DAILY IV 04/12/24 09:00 04/11/24 14:21 DC Fluticasone Propionate (FLOnase 50 mcg/ spray 16g bottle) 1 SPRAY PER NARE BID EN 04/11/24 21:00 05/11/24 20:59 04/12/24 09:27 2 SPRAYS Guaifenesin/ Dextromethorphan (MUCinex DM 1 EACH TAB.SR.12H) 1 each BID PO 04/12/24 21:00 05/12/24 20:59 Insulin Human Regular (humuLIN R 100 UNIT/ML 3ML) INSULIN SLIDING SCAL... ACHS SQ 04/11/24 16:30 05/11/24 16:29 Ipratropium [place] (AtrovENT UD) 0.5 mg Q6H PRN IH SHORTNESS OF BREATH 04/11/24 14:30 05/11/24 14:29 04/11/24 19:42 0.5 MG Losartan Potassium (CozAAR 100MG TAB) 100 mg DAILY PO 04/12/24 09:00 05/12/24 08:59 Magnesium Sulfate 50 ml @ 0 mls/hr PROTOCOL IV 04/11/24 15:00 05/11/24 14:59 04/11/24 22:23 25 MLS/HR Metoprolol Succinate (TopROL XL) 50 mg DAILY PO 04/12/24 09:00 05/12/24 08:59 Nitroglycerin (Nitrostat) 0.4 mg AD PRN SL CHEST PAIN 04/11/24 14:30 04/11/24 14:13 DC Nitroglycerin (Nitrostat) 0.4 mg AD PRN SL CHEST PAIN 04/11/24 14:30 05/11/24 14:29 Pantoprazole Sodium (PROTonix 40MG TAB) 40 mg DAILY PO 04/12/24 09:00 05/12/24 08:59 Potassium Chloride 100 ml @ 100 mls/hr AD PRN IV POTASSIUM PROTOCOL 04/11/24 15:00 05/11/24 14:59 Potassium Chloride (K-Dur/Klor-Con 20meq) 20 meq AD PRN PO POTASSIUM PROTOCOL 04/11/24 15:00 05/11/24 14:59 04/11/24 22:24 20 MEQ Potassium Chloride (KCl 10% Elixir 20meq/15ml) 20 meq AD PRN PO POTASSIUM PROTOCOL 04/11/24 15:00 05/11/24 14:59 Regadenoson (Lexiscan) 0.4 mg ONCE IVP 04/12/24 14:00 04/13/24 13:59 DIAGNOSTICS / RADIOLOGY: [ ] ASSESSMENT: Atypical chest pain, rule out unstable angina/ACS, POA Acute bronchitis, POA Urinary tract infection, POA History of prior MT x3 with prior history of PCI maintained on chronic antiplatelet therapy with Plavix, POA Cardiac murmur, POA History of type 2 diabetes mellitus, POA Hypertension, POA Hyperlipidemia, POA PLAN: Patient will be admitted to medical-surgical floor under telemetry monitoring We will trend troponin to rule out active ACS We will start patient on IV Rocephin for management of UTI, obtain respiratory cultures, follow up flu and COVID testing We will request consultation with Cardiology, patient follows with [facility] in [place] Continue with home dose of losartan 100 mg daily, metoprolol succinate 50 mg daily Continue with home dose of Plavix We will obtain 2D echocardiogram to assess LVF, and further evaluate cardiac murmur which patient states has been there chronically Maintain K greater than four and magnesium greater than two All labs will be repeated in the morning Disposition: Pending stress test, Cardiology recommendation LIN ABDUL MD Apr 12, 2024 15:28
[2024-04-12] MEDS: cloPIDOgrel 75MG TAB PO SCH (16:07)
[2024-04-12] MEDS: LoSARTan 100 MG TABLET PO SCH (16:08)
[2024-04-12] MEDS: ENOXAPARIN SODIUM 40 MG/0.4 ML SYRINGE SQ SCH (16:08)
[2024-04-12] MEDS: metOPROLol sucCINATE 50 MG TAB.SR.24H PO SCH (16:08)
[2024-04-12] MEDS: PANTOPrazole 40 MG TAB DR PO SCH (16:08)
--- NOTE | 2024-04-12 16:11 | NUR ---
DCP Pt awake, alert, oriented x3. 16 year old Granddaughter lives with pt in a duplex for past year. Pt verbalizes does not have any medical equipment. Independent. Person to contact if needed is Indy Lockwood (Niece). Anticipates discharge is home with her Daughter who lives in [place]. Addendum: 04/12/24 at 1617 by KASSANDRA CHANCE RN CM Amended: Links added.
--- NOTE | 2024-04-12 17:34 | HMCSR ---
APPROVED REPORT TEST INDICATIONS Chest Pain The imaging protocol used to acquire images was Rest Tc-99m/stress Tc-99m 1 day Consent: The procedure was explained and understood by the patient. Informerd consent was witnessed MIRNA Ross First, low dose rest was performed then high dose stress. RESTING DATA: The resting ekg shows: NSR Rest SPECT myocardial perfusion imaging was performed in supine position minutes following the intra venous injection of 11 mCi of Tc-99 Sestamibi. Time of rest injection: 1210 Date: 04/12/2024 PHARMACOLOGIC STRESS: Pharmacologic stress test was performed by injecting regadenoson 0.4 mg IV push followed by the intra venous injection of 28 mCi of Tc-99 Sestamibi. Time of stress injection: 1415 Date: 04/12/2024 Heart Rate at time of stress injection: 76 bpm. The images were gated to evaluate regional wall motion and calculate left ventricular ejection fracti on. STRESS DETAILS Reason for Termination: Infusion complete Stress Symptoms: Flushing, Fatigue Max HR Achieved: 115 bpm % of APMHR Achieved: 92 Max Blood Pressure: 153/81 mmHg Stress ECG: NSR LV PERFUSION Apical fixed defect. Inferolateral fixed defect. No evidence of ischemia present. EF 89% Low risk stress test as above
[2024-04-12] MEDS: guaiFENesin/dextroMETHORphan 1 EACH TAB.SR.12H PO SCH (20:50)
[2024-04-13] VITALS (14 sets, daily range): BP systolic 103–133; BP diastolic 59–75; PULSE 61–89; RESP 16–18; TEMP 97.2–98.9; O2SAT 96–98
[2024-04-13] MEDS: BENZONATATE 100 MG CAPSULE PO PRN (05:54)
--- NOTE | 2024-04-13 07:29 | PN ---
CARDIOLOGY Reason for consult: Chest pain HPI/story at presentation: This is a pleasant 71-year-old female with past medical history as per present with complaints of atypical chest discomfort in the setting of a cough and chest pain subsequently. Has a history of significant coronary disease with NC multiple times in the past, most recent stenting per patient by 2004. Also, re ported, had a cardiac catheterization that lasted, unable to find report. Cardiology was consulted for further evaluation management Subjective: 04/11/2024, no active cardiac complaint Past medical history: See below Allergies, Meds See chart Review of systems Review of Systems Constitutional: Negative for chills and fever. HENT: Negative for ear discharge and ear pain. Eyes: Negative for photophobia and discharge. Respiratory: Negative for cough, sputum production and stridor. Cardiovascular: Negative for chest pain and palpitations. Gastrointestinal: Negative for diarrhea and vomiting. Genitourinary: Negative for frequency. Musculoskeletal: Negative for myalgias. Skin: Negative for rash. Neurological: Negative for focal weakness and seizures. Endo/Heme/Allergies: Negative for polydipsia. Psychiatric/Behavioral: Negative for hallucinations. Vitals see chart PHYSICAL EXAMINATION GENERAL: The patient is alert and oriented*3 HEENT: Nonicteric sclerae, non traumatic HEART:MURMUR 04/11/2024 LUNGS: Clear to auscultation bilaterally ABDOMEN: No acute issues, non tender GENITAL, RECTAL: deferred SKIN: No rash NEUROLOGIC: NFND EXTREMITIES: No edema ASSESSMENT CHEST PAIN, CORONARY ARTERY DISEASE Atypical in the setting of cough and bronchitis Negative cardiac catheterization, 03/2023, this is reported, unable to find cardiac catheterization both [facility] records Reported history of myocardial infarction almost 15 years ago Atypical symptoms, no ischemic changes on EKG Negative troponins MURMUR Echo ordered, 04/11/2021 HYPERLIPIDEMIA DIABETES HYPERTENSION CORE MEASURES Pending OTHER MEDICAL PROBLEMS Reviewed PLAN unable to find previous records and both hospital systems. Given atypical symptoms, will proceed echocardiogram tomorrow prior to considering stress testing. If echo is abnormal with significant valvular issues, would likely benefit from cardiac catheterization over stress testing and therefore, we will proceed with echo first. Tentatively, however, keep n.p.o. after midnight. 04/12/2024 Stress test today was within normal limits, aortic valve is moderately stenotic only conservative management from a cardiac standpoint . Home when okay with primary team after infectious issues resolved. Seen and examined 04/12/24 at around 1700 ATTESTATION I was involved substantially in the care of this patient Number and complexity of problems addressed: 1 acute illness with systemic features Amount and or complexity of data Review of prior external note(s) from each unique source: 2+ Ordering of each unique test : 0 Review of the result(s) of each unique test: 2+ Assessment requiring an independent historian(s): No Independent interpretation of test performed by another MD/QHCP/appropriate source (not separately reported) : No Discussion of management or test interpretation with external MD/QHCP/appropriate source (not separately reported) : No Risk status (cardiac, billing related): Moderate Vitals/Labs Vital Signs Date Time Temp Pulse Resp B/P (MAP) Pulse Ox O2 Delivery O2 Flow Rate FiO2 04/13/24 03:20 98.4 71 16 128/75 100 Room Air 04/12/24 23:08 0 21 Medications Current Medications Nitroglycerin 0.4 mg AD PRN SL; Start 04/11/24 at 14:30; Stop 05/11/24 at 14:29 Acetaminophen 500 mg Q6H PRN PO; Start 04/11/24 at 14:30; Stop 05/11/24 at 14:29 Ceftriaxone Sodium 1 gm Q12H IVPB Last administered on 04/13/24at 03:11; Start 04/11/24 at 14:30; Stop 04/21/24 at 14:29 Budesonide 0.5 mg BIDRESP IH; Start 04/11/24 at 14:30; Stop 04/11/24 at 16:30; Status DC Nitroglycerin 0.4 mg AD PRN SL; Start 04/11/24 at 14:30; Stop 04/11/24 at 14:13; Status DC Famotidine 20 mg DAILY IV; Start 04/12/24 at 09:00; Stop 04/11/24 at 14:21; Status DC Ipratropium [place] 0.5 mg Q6H PRN IH Last administered on 04/11/24at 19:42; Start 04/11/24 at 14:30; Stop 05/11/24 at 14:29 Enoxaparin Sodium 40 mg DAILY SQ Last administered on 04/12/24at 16:08; Start 04/12/24 at 09:00; Stop 05/12/24 at 08:59 Insulin Human Regular INSULIN SLIDING SCAL... ACHS SQ; Start 04/11/24 at 16:30; Stop 05/11/24 at 16:29 Fluticasone Propionate 1 SPRAY PER NARE BID EN Last administered on 04/12/24at 21:36; Start 04/11/24 at 21:00; Stop 05/11/24 at 20:59 Metoprolol Succinate 50 mg DAILY PO Last administered on 04/12/24at 16:08; Start 04/12/24 at 09:00; Stop 05/12/24 at 08:59 Losartan Potassium 100 mg DAILY PO Last administered on 04/12/24at 16:08; Start 04/12/24 at 09:00; Stop 05/12/24 at 08:59 Clopidogrel Bisulfate 75 mg DAILY PO Last administered on 04/12/24at 16:07; Start 04/12/24 at 09:00; Stop 05/12/24 at 08:59 Pantoprazole Sodium 40 mg DAILY PO Last administered on 04/12/24at 16:08; Start 04/12/24 at 09:00; Stop 05/12/24 at 08:59 Potassium Chloride 100 ml @ 100 mls/hr AD PRN IV; Start 04/11/24 at 15:00; Stop 05/11/24 at 14:59 Potassium Chloride 20 meq AD PRN PO; Start 04/11/24 at 15:00; Stop 05/11/24 at 14:59 Potassium Chloride 20 meq AD PRN PO Last administered on 04/11/24at 22:24; Start 04/11/24 at 15:00; Stop 05/11/24 at 14:59 Magnesium Sulfate 50 ml @ 0 mls/hr PROTOCOL IV Last administered on 04/11/24at 22:23; Start 04/11/24 at 15:00; Stop 05/11/24 at 14:59 Sodium Chloride 4 ml STK-MED ONCE IH Last administered on 04/11/24at 16:25; Start 04/11/24 at 15:37; Stop 04/11/24 at 15:37; Status DC Budesonide 0.5 mg BIDRESP IH Last administered on 04/12/24at 20:08; Start 04/11/24 at 18:00; Stop 05/11/24 at 17:59 Atorvastatin Calcium 20 mg HS PO Last administered on 04/12/24at 20:50; Start 04/11/24 at 21:00; Stop 05/11/24 at 20:59 Benzonatate 100 mg Q8H PRN PO Last administered on 04/13/24at 05:54; Start 04/12/24 at 11:00; Stop 05/12/24 at 10:59 Guaifenesin/ Dextromethorphan 1 each BID PO Last administered on 04/12/24at 20:50; Start 04/12/24 at 21:00; Stop 05/12/24 at 20:59 Regadenoson 0.4 mg ONCE IVP; Start 04/12/24 at 14:00; Stop 04/12/24 at 17:06; Status DC Regadenoson 0.4 mg STK-MED ONCE IVP; Start 04/12/24 at 14:12; Stop 04/12/24 at 14:12; Status DC JUSTO FARIAS MD Apr 13, 2024 07:29
[2024-04-13] MEDS: ceFEPime HCL 2 GM VIAL IVPB SCH (11:17)
--- NOTE | 2024-04-13 14:37 | PN ---
[facility] PROGRESS NOTE Date of Service: Apr 13, 2024 Time of Service: 14:24 SUBJECTIVE: 04/12 patient seen at bedside, no acute events overnight. Cardiology recommending stress test, we will follow up with the results. She does have pain on palpation of the chest which may suggest some muscular soreness from coughing for the last four days. She has been started on p.r.n. medications for cough with some improvement. Urine growing bacteria, we will continue with empiric antibiotics. Vitals and labs are relatively unremarkable. 04/13 patient seen at bedside, no acute events overnight. Stress test does not show any significant ischemia, urine culture positive for Klebsiella, patient reports she is still feeling weak and lightheaded. We will order orthostatics, a PT eval and follow up. REVIEW OF SYSTEMS 12 point review of systems negative unless noted in HPI PHYSICAL EXAM GENERAL APPEARANCE: The patient is awake, alert, and oriented, in no acute cardiopulmonary distress. NEUROLOGICAL: Cranial nerves II-XII grossly intact. Motor is 5/5 in bilateral upper and lower extremities proximal to distal. No sensory deficits. HEENT: Face is symmetric. Pupils are equal and reactive. Extraocular movements are intact. NECK: Supple. No JVD. No thyromegaly. No submental, submandibular, pre- /postauricular, occipital or supraclavicular lymphadenopathy. CHEST: Normal chest expansion. No Telemetry. LUNGS: Absence of any rales, rhonchi or any wheezing. CARDIOVASCULAR: Regular. S1 and S2 normal. 3/6 murmur noted of the precordium ABDOMEN: Soft, nontender, and nondistended. There is no rebound, voluntary guarding, or rigidity. : Deferred. No [place]. EXTREMITIES: Non-edematous and not cyanotic. No clubbing. Good capillary refill. SKIN: No skin breakdown. Vital Signs (last 8hr) Date Time Temp Pulse Resp B/P (MAP) Pulse Ox O2 Delivery O2 Flow Rate FiO2 04/13/24 12:05 89 127/61 96 04/13/24 12:04 86 103/65 98 04/13/24 12:02 65 117/68 98 04/13/24 11:12 99.0 75 18 127/70 95 04/13/24 09:34 98 Room Air* 0 21 04/13/24 07:45 18 N/A Room Air 0.0 21 04/13/24 07:45 77 18 04/13/24 07:10 97.2 72 17 127/73 97 LABS: Laboratory: Test 04/13/24 11:11 04/12/24 15:52 04/12/24 04:23 04/11/24 15:13 Range/Units Whole Blood Glucose 230 #H 70-110 MG/DL Bedside Glucose Comment Notified Nurse White Blood Count 7.7 4.8-10.8 K/uL Red Blood Count 4.33 4.00-5.50 MIL/uL Hemoglobin 11.9 L 12.0-16.0 g/dL Hematocrit 36.4 36-48 % Mean Corpuscular Volume 84.1 79-99 fL Mean Corpuscular Hemoglobin 27.5 27.0-33.0 pg Mean Corpuscular Hemoglobin Concent 32.7 32.0-36.0 g/dL Red Cell Distribution Width 12.8 11.0-15.5 % Platelet Count 295 130-400 K/uL Mean Platelet Volume 9.2 7.5-10.5 fL Immature Granulocyte % (Auto) 0.3 0-1 % Neutrophils (%) (Auto) 60.9 40.0-77.0 % Lymphocytes (%) (Auto) 28.0 21.0-51.0 % Monocytes (%) (Auto) 8.3 3.0-13.0 % Eosinophils (%) (Auto) 2.0 0.0-8.0 % Basophils (%) (Auto) 0.5 0.0-5.0 % Neutrophils # (Auto) 4.7 1.8-7.7 K/uL Lymphocytes # (Auto) 2.2 1.0-4.8 K/uL Monocytes # (Auto) 0.6 0.1-1.0 K/uL Eosinophils # (Auto) 0.15 0.00-0.70 K/uL Basophils # (Auto) 0.04 0.00-0.20 K/uL Absolute Immature Granulocyte (auto 0.02 0-1 K/uL Nucleated Red Blood Cells 0.0 0.0-0.19 % Sodium Level 135 L 136-145 mmol/L Potassium Level 4.3 3.5-5.1 mmol/L Chloride Level 100 L 101-111 mmol/L Carbon Dioxide Level 29 21-32 mmol/L Blood Urea Nitrogen 6 L 7-18 mg/dL Creatinine 0.7 0.5-1.0 mg/dL Glomerular Filtration Rate Calc 92 >90 mL/min Random Glucose 123 H 70-105 mg/dL Total Calcium 9.5 8.5-10.1 mg/dL Magnesium Level 2.40 1.80-2.40 mg/dL Total Bilirubin 0.3 # 0.2-1.0 mg/dL Aspartate Amino Transf (AST/SGOT) 19 10-37 U/L Alanine Aminotransferase (ALT/SGPT) 28 12-78 U/L Alkaline Phosphatase 134 50-136 U/L Total Creatine Kinase 85 21-232 U/L Troponin I High Sensitivity 7.0 4-50 ng/L Total Protein 7.9 6.0-8.3 g/dL Albumin 3.2 L 3.5-5.0 g/dL Erythrocyte Sedimentation Rate 58 H 0-30 MM/HR Current Medications Medications (Trade) Dose Ordered Sig/John Route PRN Reason Start Time Stop Time Status Last Admin Dose Admin Acetaminophen (TYLenol 500MG TAB) 500 mg Q6H PRN PO MILD PAIN (1-3) 04/11/24 14:30 05/11/24 14:29 Atorvastatin Calcium (LIPItor 20MG) 20 mg HS PO 04/11/24 21:00 05/11/24 20:59 04/12/24 20:50 20 MG Benzonatate (Tessalon 100mg Caps) 100 mg Q8H PRN PO cough 04/12/24 11:00 05/12/24 10:59 04/13/24 05:54 100 MG Budesonide (Pulmicort 0.5 Mg/2ml) 0.5 mg BIDRESP IH 04/11/24 14:30 04/11/24 16:30 DC Budesonide (Pulmicort 0.5 Mg/2ml) 0.5 mg BIDRESP IH 04/11/24 18:00 05/11/24 17:59 04/13/24 08:11 0.5 MG Cefepime HCl (MAXipime 2 gm vial) 2 gm Q12H IVPB 04/13/24 11:00 04/23/24 10:59 04/13/24 11:17 2 GM Ceftriaxone Sodium (ROCEphine 1G INJ) 1 gm Q12H IVPB 04/11/24 14:30 04/13/24 11:00 DC 04/13/24 03:11 1 GM Clopidogrel Bisulfate (plaVIX 75MG) 75 mg DAILY PO 04/12/24 09:00 05/12/24 08:59 04/13/24 09:30 75 MG Enoxaparin Sodium (Lovenox) 40 mg DAILY SQ 04/12/24 09:00 05/12/24 08:59 04/13/24 09:31 40 MG Famotidine (Pepcid 20mg Vial) 20 mg DAILY IV 04/12/24 09:00 04/11/24 14:21 DC Fluticasone Propionate (FLOnase 50 mcg/ spray 16g bottle) 1 SPRAY PER NARE BID EN 04/11/24 21:00 05/11/24 20:59 04/12/24 21:36 1 SPRAYS Guaifenesin/ Dextromethorphan (MUCinex DM 1 EACH TAB.SR.12H) 1 each BID PO 04/12/24 21:00 05/12/24 20:59 04/13/24 09:30 1 EACH Insulin Human Regular (humuLIN R 100 UNIT/ML 3ML) INSULIN SLIDING SCAL... ACHS SQ 04/11/24 16:30 05/11/24 16:29 04/13/24 11:53 4 UNIT Ipratropium [place] (AtrovENT UD) 0.5 mg Q6H PRN IH SHORTNESS OF BREATH 04/11/24 14:30 05/11/24 14:29 04/11/24 19:42 0.5 MG Losartan Potassium (CozAAR 100MG TAB) 100 mg DAILY PO 04/12/24 09:00 05/12/24 08:59 04/13/24 09:30 100 MG Magnesium Sulfate 50 ml @ 0 mls/hr PROTOCOL IV 04/11/24 15:00 05/11/24 14:59 04/11/24 22:23 25 MLS/HR Metoprolol Succinate (TopROL XL) 50 mg DAILY PO 04/12/24 09:00 05/12/24 08:59 04/13/24 09:30 50 MG Nitroglycerin (Nitrostat) 0.4 mg AD PRN SL CHEST PAIN 04/11/24 14:30 04/11/24 14:13 DC Nitroglycerin (Nitrostat) 0.4 mg AD PRN SL CHEST PAIN 04/11/24 14:30 05/11/24 14:29 Pantoprazole Sodium (PROTonix 40MG TAB) 40 mg DAILY PO 04/12/24 09:00 05/12/24 08:59 04/13/24 09:30 40 MG Potassium Chloride 100 ml @ 100 mls/hr AD PRN IV POTASSIUM PROTOCOL 04/11/24 15:00 05/11/24 14:59 Potassium Chloride (K-Dur/Klor-Con 20meq) 20 meq AD PRN PO POTASSIUM PROTOCOL 04/11/24 15:00 05/11/24 14:59 04/11/24 22:24 20 MEQ Potassium Chloride (KCl 10% Elixir 20meq/15ml) 20 meq AD PRN PO POTASSIUM PROTOCOL 04/11/24 15:00 05/11/24 14:59 Regadenoson (Lexiscan) 0.4 mg ONCE IVP 04/12/24 14:00 04/12/24 17:06 DC DIAGNOSTICS / RADIOLOGY: [ ] ASSESSMENT: Atypical chest pain, rule out unstable angina/ACS, POA Acute bronchitis, POA Urinary tract infection, POA History of prior [place] x3 with prior history of PCI maintained on chronic antiplatelet therapy with Plavix, POA Cardiac murmur, POA History of type 2 diabetes mellitus, POA Hypertension, POA Hyperlipidemia, POA PLAN: Patient will be admitted to medical-surgical floor under telemetry monitoring We will trend troponin to rule out active ACS We will start patient on IV Rocephin for management of UTI, obtain respiratory cultures, follow up flu and COVID testing We will request consultation with Cardiology, patient follows with light adjuster in [place] Continue with home dose of losartan 100 mg daily, metoprolol succinate 50 mg daily Continue with home dose of Plavix We will obtain 2D echocardiogram to assess LVF, and further evaluate cardiac murmur which patient states has been there chronically Maintain K greater than four and magnesium greater than two All labs will be repeated in the morning Disposition: Pending stress test, Cardiology recommendation LIN ABDUL MD Apr 13, 2024 14:37
--- NOTE | 2024-04-13 20:59 | PN ---
CARDIOLOGY Reason for consult: Chest pain HPI/story at presentation: This is a pleasant 71-year-old female with past medical history as per present with complaints of atypical chest discomfort in the setting of a cough and chest pain subsequently. Has a history of significant coronary disease with [facility] multiple times in the past, most recent stenting per patient by 2004. Also, re ported, had a cardiac catheterization that lasted, unable to find report. Cardiology was consulted for further evaluation management Subjective: 04/11/2024, no active cardiac complaint 04/13/2024 no more chest pain Past medical history: See below Allergies, Meds See chart Review of systems Review of Systems Constitutional: Negative for chills and fever. HENT: Negative for ear discharge and ear pain. Eyes: Negative for photophobia and discharge. Respiratory: Negative for cough, sputum production and stridor. Cardiovascular: Negative for chest pain and palpitations. Gastrointestinal: Negative for diarrhea and vomiting. Genitourinary: Negative for frequency. Musculoskeletal: Negative for myalgias. Skin: Negative for rash. Neurological: Negative for focal weakness and seizures. Endo/Heme/Allergies: Negative for polydipsia. Psychiatric/Behavioral: Negative for hallucinations. Vitals see chart PHYSICAL EXAMINATION GENERAL: The patient is alert and oriented*3 HEENT: Nonicteric sclerae, non traumatic HEART:MURMUR 04/11/2024 LUNGS: Clear to auscultation bilaterally ABDOMEN: No acute issues, non tender GENITAL, RECTAL: deferred SKIN: No rash NEUROLOGIC: NFND EXTREMITIES: No edema ASSESSMENT CHEST PAIN, CORONARY ARTERY DISEASE stress test and echo normal 04/13/2024 Atypical in the setting of cough and bronchitis Negative cardiac catheterization, 03/2023, this is reported, unable to find cardiac catheterization both [facility] [place] [place] records Reported history of myocardial infarction almost 15 years ago Atypical symptoms, no ischemic changes on EKG Negative troponins MURMUR Echo ordered, 04/11/2021 HYPERLIPIDEMIA DIABETES HYPERTENSION CORE MEASURES Pending OTHER MEDICAL PROBLEMS Reviewed PLAN unable to find previous records and both hospital systems. Given atypical symptoms, will proceed echocardiogram tomorrow prior to considering stress testing. If echo is abnormal with significant valvular issues, would likely benefit from cardiac catheterization over stress testing and therefore, we will proceed with echo first. Tentatively, however, keep n.p.o. after midnight. 04/12/2024 Stress test today was within normal limits, aortic valve is moderately stenotic only conservative management from a cardiac standpoint . Home when ok ay with primary team after infectious issues resolved. Seen and examined 04/12/24 at around 1700 04/13/2024 No active cardiac complaints at this time, doing well no further issues with chest pain, currently being treated for ongoing problems with infection and feeling better from this as well, appreciate primary team, currently on antibiotics. Also on Plavix losartan metoprolol statin. Likely benefit from baby aspirin given history of CAD. Will start. Echocardiogram with moderate and stress test, was normal as above. Seen and examined 04/13/2024 at around 1700. ATTESTATION I was involved substantially in the care of this patient Number and complexity of problems addressed: 1 acute illness with systemic features Amount and or complexity of data Review of prior external note(s) from each unique source: 2+ Ordering of each unique test : 0 Review of the result(s) of each unique test: 2+ Assessment requiring an independent historian(s): No Independent interpretation of test performed by another MD/QHCP/appropriate source (not separately reported) : No Discussion of management or test interpretation with external MD/QHCP/appropriat e source (not separately reported) : No Risk status (cardiac, billing related): Moderate Vitals/Labs Vital Signs Date Time Temp Pulse Resp B/P (MAP) Pulse Ox O2 Delivery O2 Flow Rate FiO2 04/13/24 20:05 70 18 N/A Room Air 0.0 21 04/13/24 18:38 98.4 115/59 97 Medications Current Medications Nitroglycerin 0.4 mg AD PRN SL; Start 04/11/24 at 14:30; Stop 05/11/24 at 14:29 Acetaminophen 500 mg Q6H PRN PO; Start 04/11/24 at 14:30; Stop 05/11/24 at 14:29 Ceftriaxone Sodium 1 gm Q12H IVPB Last administered on 04/13/24at 03:11; Start 04/11/24 at 14:30; Stop 04/13/24 at 11:00; Status DC Budesonide 0.5 mg BIDRESP IH; Start 04/11/24 at 14:30; Stop 04/11/24 at 16:30; Status DC Nitroglycerin 0.4 mg AD PRN SL; Start 04/11/24 at 14:30; Stop 04/11/24 at 14:13; Status DC Famotidine 20 mg DAILY IV; Start 04/12/24 at 09:00; Stop 04/11/24 at 14:21; Status DC Ipratropium [place] 0.5 mg Q6H PRN IH Last administered on 04/11/24at 19:42; Start 04/11/24 at 14:30; Stop 05/11/24 at 14:29 Enoxaparin Sodium 40 mg DAILY SQ Last administered on 04/13/24at 09:31; Start 04/12/24 at 09:00; Stop 05/12/24 at 08:59 Insulin Human Regular INSULIN SLIDING SCAL... ACHS SQ Last administered on 04/13/24at 11:53; Start 04/11/24 at 16:30; Stop 05/11/24 at 16:29 Fluticasone Propionate 1 SPRAY PER NARE BID EN Last administered on 04/12/24at 21:36; Start 04/11/24 at 21:00; Stop 05/11/24 at 20:59 Metoprolol Succinate 50 mg DAILY PO Last administered on 04/13/24at 09:30; Start 04/12/24 at 09:00; Stop 05/12/24 at 08:59 Losartan Potassium 100 mg DAILY PO Last administered on 04/13/24at 09:30; Start 04/12/24 at 09:00; Stop 05/12/24 at 08:59 Clopidogrel Bisulfate 75 mg DAILY PO Last administered on 04/13/24at 09:30; Start 04/12/24 at 09:00; Stop 05/12/24 at 08:59 Pantoprazole Sodium 40 mg DAILY PO Last administered on 04/13/24at 09:30; Start 04/12/24 at 09:00; Stop 05/12/24 at 08:59 Potassium Chloride 100 ml @ 100 mls/hr AD PRN IV; Start 04/11/24 at 15:00; Stop 05/11/24 at 14:59 Potassium Chloride 20 meq AD PRN PO; Start 04/11/24 at 15:00; Stop 05/11/24 at 14:59 Potassium Chloride 20 meq AD PRN PO Last administered on 04/11/24at 22:24; Start 04/11/24 at 15:00; Stop 05/11/24 at 14:59 Magnesium Sulfate 50 ml @ 0 mls/hr PROTOCOL IV Last administered on 04/11/24at 22:23; Start 04/11/24 at 15:00; Stop 05/11/24 at 14:59 Sodium Chloride 4 ml STK-MED ONCE IH Last administered on 04/11/24at 16:25; Start 04/11/24 at 15:37; Stop 04/11/24 at 15:37; Status DC Budesonide 0.5 mg BIDRESP IH Last administered on 04/13/24at 19:57; Start 04/11/24 at 18:00; Stop 05/11/24 at 17:59 Atorvastatin Calcium 20 mg HS PO Last administered on 04/13/24at 20:18; Start 04/11/24 at 21:00; Stop 05/11/24 at 20:59 Benzonatate 100 mg Q8H PRN PO Last administered on 04/13/24at 05:54; Start 04/12/24 at 11:00; Stop 05/12/24 at 10:59 Guaifenesin/ Dextromethorphan 1 each BID PO Last administered on 04/13/24at 20:18; Start 04/12/24 at 21:00; Stop 05/12/24 at 20:59 Regadenoson 0.4 mg ONCE IVP; Start 04/12/24 at 14:00; Stop 04/12/24 at 17:06; Status DC Regadenoson 0.4 mg STK-MED ONCE IVP; Start 04/12/24 at 14:12; Stop 04/12/24 at 14:12; Status DC Cefepime HCl 2 gm Q12H IVPB Last administered on 04/13/24at 11:17; Start 04/13/24 at 11:00; Stop 04/23/24 at 10:59 JUSTO FARIAS MD Apr 13, 2024 20:59
[2024-04-14 03:39] VITALS: BP 107/58; PULSE 66; RESP 16; TEMP 98.5
[2024-04-14 06:15] VITALS: PULSE 77; RESP 18
[2024-04-14 07:10] VITALS: O2SAT 97
[2024-04-14 07:28] VITALS: BP 146/78; PULSE 69; RESP 20; TEMP 97.6
[2024-04-14] MEDS: ASPIRIN 81 MG EC TAB PO SCH (09:06)
[2024-04-14 11:41] VITALS: BP 109/63; PULSE 71; RESP 20; TEMP 98.5
--- NOTE | 2024-04-14 14:18 | NUR ---
PT TAKEN TO PRIVATE VEHICLE AND AT PRESENT OFFERING N/C. PT REFUSED HER INSULIN DUE TO HER NOT EATING ANY OF HER LUNCH. PT WAS ADVISED OF HER MEDS AND TO KEEP HER APPOINTMENTS.
--- NOTE | 2024-04-14 14:24 | PN ---
in error Vitals/Labs Vital Signs Date Time Temp Pulse Resp B/P (MAP) Pulse Ox O2 Delivery O2 Flow Rate FiO2 04/14/24 11:41 98.4 71 20 109/63 100 Room Air 04/14/24 07:10 0 21 Medications Current Medications Nitroglycerin 0.4 mg AD PRN SL; Start 04/11/24 at 14:30; Stop 05/11/24 at 14:29 Acetaminophen 500 mg Q6H PRN PO; Start 04/11/24 at 14:30; Stop 05/11/24 at 14:29 Ceftriaxone Sodium 1 gm Q12H IVPB Last administered on 04/13/24at 03:11; Start 04/11/24 at 14:30; Stop 04/13/24 at 11:00; Status DC Budesonide 0.5 mg BIDRESP IH; Start 04/11/24 at 14:30; Stop 04/11/24 at 16:30; Status DC Nitroglycerin 0.4 mg AD PRN SL; Start 04/11/24 at 14:30; Stop 04/11/24 at 14:13; Status DC Famotidine 20 mg DAILY IV; Start 04/12/24 at 09:00; Stop 04/11/24 at 14:21; Status DC Ipratropium [place] 0.5 mg Q6H PRN IH Last administered on 04/11/24at 19:42; Start 04/11/24 at 14:30; Stop 05/11/24 at 14:29 Enoxaparin Sodium 40 mg DAILY SQ Last administered on 04/14/24at 09:08; Start 04/12/24 at 09:00; Stop 05/12/24 at 08:59 Insulin Human Regular INSULIN SLIDING SCAL... ACHS SQ Last administered on 04/13/24at 11:53; Start 04/11/24 at 16:30; Stop 05/11/24 at 16:29 Fluticasone Propionate 1 SPRAY PER NARE BID EN Last administered on 04/14/24at 09:11; Start 04/11/24 at 21:00; Stop 05/11/24 at 20:59 Metoprolol Succinate 50 mg DAILY PO Last administered on 04/14/24at 09:06; Start 04/12/24 at 09:00; Stop 05/12/24 at 08:59 Losartan Potassium 100 mg DAILY PO Last administered on 04/14/24at 09:06; Start 04/12/24 at 09:00; Stop 05/12/24 at 08:59 Clopidogrel Bisulfate 75 mg DAILY PO Last administered on 04/14/24at 09:07; Start 04/12/24 at 09:00; Stop 05/12/24 at 08:59 Pantoprazole Sodium 40 mg DAILY PO Last administered on 04/14/24at 09:07; Start 04/12/24 at 09:00; Stop 05/12/24 at 08:59 Potassium Chloride 100 ml @ 100 mls/hr AD PRN IV; Start 04/11/24 at 15:00; Stop 05/11/24 at 14:59 Potassium Chloride 20 meq AD PRN PO; Start 04/11/24 at 15:00; Stop 05/11/24 at 14:59 Potassium Chloride 20 meq AD PRN PO Last administered on 04/11/24at 22:24; Start 04/11/24 at 15:00; Stop 05/11/24 at 14:59 Magnesium Sulfate 50 ml @ 0 mls/hr PROTOCOL IV Last administered on 04/11/24at 22:23; Start 04/11/24 at 15:00; Stop 05/11/24 at 14:59 Sodium Chloride 4 ml STK-MED ONCE IH Last administered on 04/11/24at 16:25; Start 04/11/24 at 15:37; Stop 04/11/24 at 15:37; Status DC Budesonide 0.5 mg BIDRESP IH Last administered on 04/14/24at 06:25; Start 04/11/24 at 18:00; Stop 05/11/24 at 17:59 Atorvastatin Calcium 20 mg HS PO Last administered on 04/13/24at 20:18; Start 04/11/24 at 21:00; Stop 05/11/24 at 20:59 Benzonatate 100 mg Q8H PRN PO Last administered on 04/13/24at 05:54; Start 04/12/24 at 11:00; Stop 05/12/24 at 10:59 Guaifenesin/ Dextromethorphan 1 each BID PO Last administered on 04/14/24at 09:06; Start 04/12/24 at 21:00; Stop 05/12/24 at 20:59 Regadenoson 0.4 mg ONCE IVP; Start 04/12/24 at 14:00; Stop 04/12/24 at 17:06; Status DC Regadenoson 0.4 mg STK-MED ONCE IVP; Start 04/12/24 at 14:12; Stop 04/12/24 at 14:12; Status DC Cefepime HCl 2 gm Q12H IVPB Last administered on 04/13/24at 22:01; Start 04/13/24 at 11:00; Stop 04/23/24 at 10:59 Aspirin 81 mg DAILY PO Last administered on 04/14/24at 09:06; Start 04/14/24 at 09:00; Stop 05/14/24 at 08:59 JUSTO FARIAS MD Apr 14, 2024 14:24
[2024-04-14] MEDS ORDERED: CEPH500B PO (14:32)
--- NOTE | 2024-04-14 14:33 | DS ---
Discharge Summary Hospital Course Summary: 73-year-old female with underlying history of hypertension, hyperlipidemia, type 2 diabetes mellitus, previous history of CT x3 with last CT being in 2004, prior history of PCI with stenting, cardiac murmur, who presented to the ER for further evaluation of chest pain. Patient states that she has been having cough for about a week and she was following up with her primary care physician. While waiting in the lobby, she developed left-sided chest pain which she describes as stabbing in quality. Pain lasted for about 10-15 minutes and was relieved after receiving aspirin and nitroglycerin. Patient states that she became anxious due to prior history of multiple MIs. She is followed by Dr. Sheffield with Cardiology in [place]. Cough has been productive with greenish colored sputum. She has been also having dysuria as well. Denies any significant fevers, chills or shortness of breath. Labs on presentation bedside troponin was noted to be negative. Chest x-ray showed no acute infiltrate. Patient was admitted, cardiology consulted, a stress test was ordered that did not show any significant ischemic changes, cardiology did not recommend any further workup. She was positive for UTI with Klebsiella. On hospital day 3 she was evaluated as stable and ready for discharge. She will be discharged home on oral antibiotics. 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 Indeterminate diastolic dysfunction. There is normal left ventricular wall thickness. Left ventricular cavity size is normal. Normal wall motion Aortic valve is trileaflet, thickened with restricted opening. There is Moderate aortic valvular stenosis.Vmax 3.5 m/s No pericardial effusion. Normal pulmonary pressures study quality was adequate TEST INDICATIONS Chest Pain The imaging protocol used to acquire images was Rest Tc-99m/stress Tc-99m 1 day Consent: The procedure was explained and understood by the patient. Informerd consent was witnessed by MIRNA Robledo First, low dose rest was performed then high dose stress. RESTING DATA: The resting ekg shows: NSR Rest SPECT myocardial perfusion imaging was performed in supine position minutes following the intravenous injection of 11 mCi of Tc-99 Sestamibi. Time of rest injection: 1210 Date: 04/12/2024 PHARMACOLOGIC STRESS: Pharmacologic stress test was performed by injecting regadenoson 0.4 mg IV push followed by the intravenous injection of 28 mCi of Tc-99 Sestamibi. Time of stress injection: 1415 Date: 04/12/2024 Heart Rate at time of stress injection: 76 bpm. The images were gated to evaluate regional wall motion and calculate left ventricular ejection fraction. STRESS DETAILS Reason for Termination: Infusion complete Stress Symptoms: Flushing, Fatigue Max HR Achieved: 115 bpm % of APMHR Achieved: 92 Max Blood Pressure: 153/81 mmHg Stress ECG: NSR LV PERFUSION Apical fixed defect. Inferolateral fixed defect. No evidence of ischemia present. EF 89% Low risk stress test as above CHEST 1VW HISTORY: Chest pain COMPARISON: None FINDINGS: A frontal projection of the chest was obtained. No acute pulmonary infiltrates is seen. The heart is borderline enlarged. Degenerative changes are seen. Prominent interstitial markings are seen. IMPRESSION: 1. No acute pulmonary infiltrate is seen. Assessment/Plan: Atypical chest pain, rule out unstable angina/ACS, POA Acute bronchitis, POA Urinary tract infection, Klebsiella, POA History of prior CT x3 with prior history of PCI maintained on chronic antiplatelet therapy with Plavix, POA Cardiac murmur, POA History of type 2 diabetes mellitus, POA Hypertension, POA Hyperlipidemia, POA Discharge Instructions: Follow up with PCP in 3-7 days Follow up with cardiology in 1-2 weeks Home Medications: Reported Medications Losartan Potassium (Losartan Potassium) 100 Mg Tablet, 1 TAB PO DAILY for 30 Days, #30 TAB 0 Refills 04/11/24 Metformin HCl (Metformin HCl) 500 Mg Tablet, 1 TAB PO BID for 30 Days, #60 TAB 0 Refills 04/11/24 Atorvastatin Calcium (Atorvastatin Calcium) 20 Mg Tablet, 1 TAB PO HS for 30 Days, #30 TAB 0 Refills 04/11/24 Pantoprazole Sodium (Pantoprazole Sodium) 40 Mg Tablet.dr, 1 TAB PO DAILY for 30 Days, #30 TAB 0 Refills 04/11/24 Metoprolol Succinate (Metoprolol Succinate) 50 Mg Tab.er.24h, 1 TAB PO DAILY for 30 Days, #30 TAB 0 Refills 04/11/24 Clopidogrel Bisulfate (Clopidogrel) 75 Mg Tablet, 1 TAB PO DAILY for 30 Days, #3 0 TAB 0 Refills 04/11/24 Discontinued Reported Medications Acetaminophen (Acetaminophen Extra Strength) 500 Mg Tablet, 1-2 TAB PO Q4HPRN PRN for pain for 1 Day, #20 TAB 0 Refills 04/11/24 Metformin HCl (Metformin HCl) 500 Mg Tablet, 1 TAB PO BID for 30 Days, #60 TAB 0 Refills 04/11/24 Metoprolol Succinate (Metoprolol Succinate) 50 Mg Tab.er.24h, 1 TAB PO DAILY for 30 Days, #30 TAB 0 Refills 04/11/24 Losartan Potassium (Losartan Potassium) 100 Mg Tablet, 1 TAB PO DAILY for 30 Days, #30 TAB 0 Refills 04/11/24 Atorvastatin Calcium (Atorvastatin Calcium) 20 Mg Tablet, 1 TAB PO HS for 30 Days, #30 TAB 0 Refills 04/11/24 Clopidogrel Bisulfate (Clopidogrel) 75 Mg Tablet, 1 TAB PO DAILY for 30 Days, #30 TAB 0 Refills 04/11/24 Pantoprazole Sodium (Pantoprazole Sodium) 40 Mg Tablet.dr, 1 TAB PO DAILY for 30 Days, #30 TAB 0 Refills 04/11/24 New Medications: Cephalexin Monohydrate (Keflex) 500 Mg Cap 500 MG PO BID, #14 CAP Continued Medications: Atorvastatin Calcium (Atorvastatin Calcium) 20 Mg Tablet 1 TAB PO HS for 30 Days, #30 TAB 0 Refills Clopidogrel Bisulfate (Clopidogrel) 75 Mg Tablet 1 TAB PO DAILY for 30 Days, #30 TAB 0 Refills Losartan Potassium (Losartan Potassium) 100 Mg Tablet 1 TAB PO DAILY for 30 Days, #30 TAB 0 Refills Metformin HCl (Metformin HCl) 500 Mg Tablet 1 TAB PO BID for 30 Days, #60 TAB 0 Refills Metoprolol Succinate (Metoprolol Succinate) 50 Mg Tab.er.24h 1 TAB PO DAILY for 30 Days, #30 TAB 0 Refills Pantoprazole Sodium (Pantoprazole Sodium) 40 Mg Tablet.dr 1 TAB PO DAILY for 30 Days, #30 TAB 0 Refills Discontinued Medications: Acetaminophen (Acetaminophen Extra Strength) 500 Mg Tablet 1-2 TAB PO Q4HPRN PRN for pain for 1 Day, #20 TAB 0 Refills Atorvastatin Calcium (Atorvastatin Calcium) 20 Mg Tablet 1 TAB PO HS for 30 Days, #30 TAB 0 Refills Clopidogrel Bisulfate (Clopidogrel) 75 Mg Tablet 1 TAB PO DAILY for 30 Days, #30 TAB 0 Refills Losartan Potassium (Losartan Potassium) 100 Mg Tablet 1 TAB PO DAILY for 30 Days, #30 TAB 0 Refills Metformin HCl (Metformin HCl) 500 Mg Tablet 1 TAB PO BID for 30 Days, #60 TAB 0 Refills Metoprolol Succinate (Metoprolol Succinate) 50 Mg Tab.er.24h 1 TAB PO DAILY for 30 Days, #30 TAB 0 Refills Pantoprazole Sodium (Pantoprazole Sodium) 40 Mg Tablet.dr 1 TAB PO DAILY for 30 Days, #30 TAB 0 Refills Time spent arranging discharge: 31-60 minutes LIN ABDUL MD Apr 14, 2024 14:33
== END 2024-04-14 14:31 | disposition home or self-care (01) | DRG 303 ==
LOC: EDH 12:13 → EDHIP 14:02 → 2DH 22:20
PROVIDERS: ADMIT Internal Medicine; ATTEND Internal Medicine
PROC: 4A12XM4 Monitoring of Cardiac Stress, External Approach (ICD-10-PCS; principal; 2024-04-12)
PROC: 3E073KZ Introduction of Other Diagnostic Substance into Coronary Artery, Percutaneous Approach (ICD-10-PCS; 2024-04-12)
DX: I25.110 Atherosclerotic heart disease of native coronary artery with unstable angina pectoris (principal); N39.0 Urinary tract infection, site not specified; E78.00 Pure hypercholesterolemia, unspecified; I10 Essential (primary) hypertension; E11.9 Type 2 diabetes mellitus without complications; J20.9 Acute bronchitis, unspecified; B96.1 Klebsiella pneumoniae [K. pneumoniae] as the cause of diseases classified elsewhere; I35.0 Nonrheumatic aortic (valve) stenosis; Z79.899 Other long term (current) drug therapy; Z79.02 Long term (current) use of antithrombotics/antiplatelets; Z90.710 Acquired absence of both cervix and uterus; Z95.5 Presence of coronary angioplasty implant and graft; I25.2 Old myocardial infarction
CPT/HCPCS: 36415; 71045; 78452; 80048; 80053; 80076; 81001; 82550; 82948; 83036; 83735; 83880; 84145; 84443; 84484; 85025; 85651; 86140; 87071; 87086; 87186; 87205; 87635; 87804; 87880; 93005; 93017; 93306; 94640; 94664; 99285; A9500; G0378; J0692; J0696; J1650; J1815; J2785; J3475; A4600

== ENCOUNTER 2024-04-14 16:13 | Emergency (ER) | payer MEDICARE ==
[~2024-04-14] VITALS: Ht 157.5 cm; Wt 59.0 kg
[~2024-04-14 16:13] MED LIST: ACET-2123 PO; ATOR20TA65 PO; CEPH500B PO; CLOP75TA32 PO; LOSA100T59 PO; METF-444 PO; METO-391 PO; PANT40TA54 PO
[2024-04-14 16:22] VITALS: BP 188/88; PULSE 75; RESP 16; TEMP 98
--- NOTE | 2024-04-14 16:28 | ERN ---
ED Note History of Present Illness Stated Complaint: RIGHT ARM LACERATION Chief Complaint: Wound Check Time Seen by MD: 16:14 Dictation: PATIENT IS A 73-YEAR-OLD FEMALE HERE WITH BLEEDING FROM AN IV SITE TO HER RIGHT LATERAL FOREARM ONSET 40 MINUTES PRIOR TO ARRIVAL. SHE HAD BEEN ADMITTED TO THE HOSPITAL FOR BRONCHITIS AND CHEST PAIN IV WAS DC AND SHE WENT HOME IN IT CONTINUED TO BLEED SO SHE CAME BACK TO THE HOSPITAL. DRESSING WAS REMOVED, THE BLEEDING IS NOTED TO BE CAPILLARY NO PULSATILE BLEEDING. Allergies: Coded Allergies: No Known Drug Allergies (Unverified Allergy, Unknown, 04/11/24) Home Meds Active Scripts Cephalexin Monohydrate (Keflex) 500 Mg Cap, 500 MG PO BID, #14 CAP Prov:LIN ABDUL MD 04/14/24 Reported Medications Losartan Potassium (Losartan Potassium) 100 Mg Tablet, 1 TAB PO DAILY for 30 Days, #30 TAB 0 Refills 04/11/24 Metformin HCl (Metformin HCl) 500 Mg Tablet, 1 TAB PO BID for 30 Days, #60 TAB 0 Refills 04/11/24 Atorvastatin Calcium (Atorvastatin Calcium) 20 Mg Tablet, 1 TAB PO HS for 30 Days, #30 TAB 0 Refills 04/11/24 Pantoprazole Sodium (Pantoprazole Sodium) 40 Mg Tablet.dr, 1 TAB PO DAILY for 30 Days, #30 TAB 0 Refills 04/11/24 Metoprolol Succinate (Metoprolol Succinate) 50 Mg Tab.er.24h, 1 TAB PO DAILY for 30 Days, #30 TAB 0 Refills 04/11/24 Clopidogrel Bisulfate (Clopidogrel) 75 Mg Tablet, 1 TAB PO DAILY for 30 Days, # 30 TAB 0 Refills 04/11/24 Discontinued Reported Medications Acetaminophen (Acetaminophen Extra Strength) 500 Mg Tablet, 1-2 TAB PO Q4HPRN PRN for pain for 1 Day, #20 TAB 0 Refills 04/11/24 Metformin HCl (Metformin HCl) 500 Mg Tablet, 1 TAB PO BID for 30 Days, #60 TAB 0 Refills 04/11/24 Metoprolol Succinate (Metoprolol Succinate) 50 Mg Tab.er.24h, 1 TAB PO DAILY for 30 Days, #30 TAB 0 Refills 04/11/24 Losartan Potassium (Losartan Potassium) 100 Mg Tablet, 1 TAB PO DAILY for 30 Days, #30 TAB 0 Refills 04/11/24 Atorvastatin Calcium (Atorvastatin Calcium) 20 Mg Tablet, 1 TAB PO HS for 30 Days, #30 TAB 0 Refills 04/11/24 Clopidogrel Bisulfate (Clopidogrel) 75 Mg Tablet, 1 TAB PO DAILY for 30 Days, #30 TAB 0 Refills 04/11/24 Pantoprazole Sodium (Pantoprazole Sodium) 40 Mg Tablet.dr, 1 TAB PO DAILY for 30 Days, #30 TAB 0 Refills 04/11/24 Past Medical History Past Medical History: High Cholesterol, Hypertension, Other Additional Past Medical Hx: OR Surgical History: Hysterectomy, Tonsillectomy, Cholecystectomy, History: Not Applicable RN Note Reviewed/Agreed w/PFSH: Yes Review of System Dictation CONSTITUTIONAL: NEGATIVE EXCEPT FOR HPI HEAD/FACE: NEGATIVE EXCEPT FOR HPI EENT: NEGATIVE EXCEPT FOR HPI RESPIRATORY: NEGATIVE EXCEPT FOR HPI GASTROINTESTINAL/ABDOMINAL: NEGATIVE EXCEPT FOR HPI GENITOURINARY: NEGATIVE EXCEPT FOR HPI MUSCULOSKELETAL: NEGATIVE EXCEPT FOR HPI INTEGUMENTARY: NEGATIVE EXCEPT FOR HPI BLEEDING FROM RIGHT LATERAL FOREARM IV SITE/PUNCTURE NEUROLOGICAL/PSYCH: NEGATIVE EXCEPT FOR HPI HEMATOLOGIC/LYMPHATIC: NEGATIVE EXCEPT FOR HPI ALL SYSTEMS NEGATIVE, EXCEPT NOTED ABOVE. 13 POINT REVIEW OF SYSTEMS ASSESSED AND ALL NEGATIVE EXCEPT FOR ABOVE. Initial Vital Sign VS Vital Signs Date Time Temp Pulse Resp B/P (MAP) Pulse Ox O2 Delivery O2 Flow Rate FiO2 04/14/24 16:22 98.1 75 16 188/88 98 Room Air Physical Exam Dictation VITAL SIGNS REVIEWED GENERAL APPEARANCE: ALERT, ORIENTED X 3, NO ACUTE DISTRESS, WELL DEVELOPED, NOURISHED. HEAD AND FACE: NON-TRAUMATIC. EYES: PERRL, PINK CONJUNCTIVAS, EYELID NO TRAUMA, ANTERIOR CHAMBER WITH ARCUS SENILIS. EARS: PINNAS INTACT AND NO SIGNS OF TRAUMA OR ERYTHEMA EAR CANALS CLEAR AND NO DISCHARGE TM NO ERYTHEMA NOSE: NO DISCHARGE, NO BLEEDING. OROPHARYNX: MOUTH NORMAL, TONGUE PINK, PHARYNX CLEAR,NO ERYTHEMA, TONSILS NO EXUDATES, NO ABSCESSES NOTED, MUCOUS MEMBRANE MOIST NECK: SUPPLE, NON-TENDER, NO THYROMEGALY, NO MASSES, NO JVD, NO BRUITS BREAST:DEFERRED CHEST:NO TENDERNESS, NO CREPITUS, NO PARADOXICAL MOVEMENT, NO RETRACTIONS LUNGS:CLEAR, WELL-VENTILATED, SYMMETRIC, NO RALES, NO WHEEZING, NO RHONCHI, NO STRIDOR, GOOD BREATH SOUNDS BILATERALLY HEART: REGULAR RATE, REGULAR RHYTHM, NO MURMUR, NO GALLOPS VASCULAR: NO PERIPHERAL EDEMA, ABDOMEN: SOFT, POSITIVE BOWEL SOUNDS, NONDISTENDED, NO GUARDING, NONTENDER, NO REBOUND, NO MASSES NO HEPATOMEGALY, NO SPLENOMEGALY, NO VILLAR'S SIGN, NO HERNIAS. RECTAL: DEFERRED GENITAL: DEFERRED NEUROLOGICAL: NORMAL SPEECH, MOTOR FUNCTION INTACT, SENSORY FUNCTION INTACT MUSCULOSKELETAL: NECK NONTENDER, FULL RANGE OF MOTION, BACK NONTENDER, FULL RANGE OF MOTION, EXTREMITIES: NONTENDER, FULL RANGE OF MOTION SKIN: COLOR PINK, DRY, CONTINUE HIS CAPILLARY BLEEDING FROM RIGHT LATERAL FOREARM. LYMPHATIC: DEFERRED Results (Laboratory/Radiology) Labs Reviewed?: Yes ED Course ED Course Vital Signs Date Time Temp Pulse Resp B/P (MAP) Pulse Ox O2 Delivery O2 Flow Rate FiO2 04/14/24 16:22 98.1 75 16 188/88 98 Room Air 1625 DRESSING CLEAN DRY AND INTACT WE WILL DISCHARGE PATIENT HOME. INSTRUCTIONS DO NOT REMOVE DRESSING UNTIL TOMORROW. Medical Decision Making MDM MEDICAL DISCHARGE MAKING BASED ON PRESSURE DRESSING TO BLEEDING IV SITE TO RIGHT FOREARM. DRESSING APPLIED BY LAST SORTER DRESSING CLEAN DRY AND INTACT [facility] INTACT. Procedure Procedure Dictation: PRESSURE DRESSING APPLIED WITH ELASTOPLAST AND 4X4S [facility] INTACT DX & DISP Disposition: Discharge Departure Impression: Primary Impression: Bleeding at insertion site Condition: Stable Additional Instructions: FOLLOW-UP WITH PRIMARY CARE PROVIDER IN 1 TO 2 DAYS. TAKE MEDICATIONS DIRECTED HERE IN THE EMERGENCY ROOM. OKAY TO CONTINUE HOME MEDICATIONS UNLESS OTHERWISE DISCUSSED DURING YOUR VISIT IN THE EMERGENCY ROOM TODAY. RETURN TO YOUR NEAREST EMERGENCY ROOM IF SYMPTOMS WORSEN OR IF THERE IS NO IMPROVEMENT. CALL 911 IF YOU NEED IMMEDIATE ASSISTANCE. TAKE TYLENOL OR MOTRIN [id number] NEEDED AND IF NO CONTRAINDICATIONS ARE PRESENT. INCREASE ORAL HYDRATION. A WOUND CULTURE OR URINE CULTURE WAS ORDERED HERE IN THE EMERGENCY ROOM DEPARTMENT PLEASE FOLLOW-UP WITH PRIMARY CARE PROVIDER AND ADVISE THEM TO GET REPEAT PORTS FROM OUR FACILITY. IF YOU HAD ANY DUONG WRAP/SPLINTS THAT WERE APPLIED HERE, PLEASE DO NOT REMOVE THEM UNTIL YOU SEE YOUR PRIMARY CARE OR SPECIALTY. DO NOT REMOVE DRESSING UNTIL SEEN BY YOUR PRIMARY CARE DOCTOR TOMORROW. Referrals: TUCKER WILLIAMSON (PCP) Time of Disposition: 16:27 I have reviewed the case, and I agree with, Diagnosis and Plan I performed the substantive portion of the visit. I have reviewed and personally made and approve the management plan that is documented in the notes by myself or the MARVIN. I acknowledge full responsibility for the patient's management plan. NEELAM RUIZ NP Apr 14, 2024 16:28 AMANDA PABLO MD Apr 15, 2024 12:47
--- NOTE | 2024-04-14 17:29 | NUR ---
CALLED PT IN [place] NO ANSWER AT THIS TIME
== END 2024-04-14 18:06 | disposition left against medical advice (07) ==
LOC: EDH 16:13
DX: L76.22 Postprocedural hemorrhage of skin and subcutaneous tissue following other procedure (principal); E78.00 Pure hypercholesterolemia, unspecified; I10 Essential (primary) hypertension; Z79.02 Long term (current) use of antithrombotics/antiplatelets; Z79.84 Long term (current) use of oral hypoglycemic drugs; Z79.899 Other long term (current) drug therapy; Z90.49 Acquired absence of other specified parts of digestive tract; Z90.710 Acquired absence of both cervix and uterus
CPT/HCPCS: 99282